=== PATIENT | female | born 1980 | race Caucasian/White ===

== ENCOUNTER 2020-01-08 08:46 | Outpatient (CLI) | payer MEDICAID, SELFPAY ==
--- NOTE | 2020-01-08 09:37 | MR_ITS ---
WS: [id number] MRI RIGHT FOOT without CONTRAST. COMPARISON: RIGHT foot radiograph 05/12/2019 and calcaneus 08/01/2019 Multiplanar, multisequence imaging is performed without contrast. Distal Achilles tendon is normal. There is a small amount of fluid at the attachment of the plantar a poneurosis to the calcaneus. There is a small amount of perifascial edema and a small amount of marro w in the adjacent bone. Associated small calcaneal spur. Mild thickening of the plantar aponeurosis medially. There is a very small amount of increased T2 sig nal extending into the medial plantar aponeurosis by 4 mm. There is no joint effusion is any significance. Metatarsals and toes are normally aligned. MR/MR foot RT wo con* [id number] IMPRESSION: 1. Moderate plantar fasciitis. Focal tear in the medial aponeurosis. 2. Small calcaneal spur.
== END 2020-01-08 08:47 | disposition home or self-care (01) ==
LOC: RADSHAW 08:48
PROVIDERS: Family Provider Internal Medicine; PCP Internal Medicine; Visit Provider Podiatrist Foot & Ankle Surgery
DX: M72.2 Plantar fascial fibromatosis (principal); M77.31 Calcaneal spur, right foot
CPT/HCPCS: 73718

== ENCOUNTER 2020-04-21 14:38 | Outpatient (CLI) | payer MEDICAID, SELFPAY ==
--- NOTE | 2020-04-21 15:31 | PC.NURSE ---
PPE donned to include gown, goggles, gloves and N95. Patient identified utilizing name and date of . Covid nasal swab performed and specimen labeled. Patient tolerated well and specimen taken to lab.
[2020-04-22 20:17] LABS: Coronavirus Lab Test PTC Negative
== END 2020-04-21 14:39 | disposition home or self-care (01) ==
PROVIDERS: PCP Internal Medicine; Visit Provider Orthopaedic Surgery
DX: Z01.818 Encounter for other preprocedural examination (principal)
CPT/HCPCS: 87635

== ENCOUNTER 2020-04-25 07:43 | Day surgery (SDC) | payer MEDICAID, SELFPAY ==
[2020-04-24 09:35] VITALS: BMI 28.3
[2020-04-25] VITALS (9 sets, daily range): BP systolic 135–171; BP diastolic 80–98; PULSE 68–107; RESP 16–19; TEMP 36.3–36.8; O2SAT 94–97
[2020-04-25] MEDS: sodium chloride 0.9% 1,000 ML 30 ML IV (08:16)
--- NOTE | 2020-04-25 08:35 | ANES.PREANE2 ---
Pre-Anesthetic Assessment Pre-Anesthetic Assessment: Height/Weight: Height 1.52 m Weight 65.771 kg Preop Diagnosis: Recalcitrant plantar fasciitis with gastrocnemius equinus right lower extremity Proposed Procedure: Operation Date: 04/25/20 10:05 Proposed Procedures p Gastrocnemius Recession 76916 [id number] M21.6X1(Not Applicable) - Papo Villasenor DPM s Plantar fascial release right(Right) - Papo Villasenor DPM Was Beta Eber taken within 24 hours: N/A Last intake: Intake Last Liquid Date 04/24/20 Last Liquid Time 23:00 Last Solid Date 04/24/20 Last Solid Time 18:00 Social: Social History: Alcohol and Tobacco Exam: Additional Exam Findings (including area of procedure): Social EtOH use only Airway: Submandibular: WNL Cervical ROM: WNL MP: 2 History/ROS: No significant complaints Pulmonary: Pulmonary: None reported Comments: Smoker CV/HEM: CV/HEM: None reported : : None reported Hepatic: Hepatic: None reported GI: GI: None reported Metabolic: Metabolic: None reported Musc/skel: Musc/skel: None reported Neuropsych: Neuropsych: Depression and Seizure Comments: No seizure > 2 years Anesthetic Plan: ASA status: 2 Anesthesia: General and Regional (specify below) Other: Risks, benefits and options for post op pain control disc and pt consents to Right US Guided Popliteal Nerve Block Risk of > 500 ml blood loss (7ml/kg in children): No Meds/Allergies Current Medications: Current Medications Generic Name Dose Route Start Last Admin Trade Name Freq PRN Reason Stop Dose Admin Sodium Chloride 1,000 mls @ 30 ml s/hr 04/25/20 08:15 04/25/20 08:16 Sodium Chloride 0.9% IV 04/26/20 08:14 30 mls/hr .Q24H LEANNA Administration PFSH Anesthesia PFSH: Surgical History (Updated 04/24/20 @ 09:41 by Keyla Barone) Hx of section Hx of cholecystectomy Family History Other Heart disease Hypertension Social History Smoking and tobacco status: current every day smoker cigarettes Packs smoked per day: 0.5 Alcohol intake: never Current occupational status: employed Current occupation: [employer] Female Reproductive History: Date of last menstrual period: 04/05/20 Data Anesthesia Cardiac Studies: No Data to Display
[2020-04-25] MEDS: fentaNYL 50 mcg/mL INJ 2mL 100 MCG IVP (10:15)
[2020-04-25] MEDS: midazolam 1 mg/mL INJ 5 ML 5 MG IVP (10:16)
--- NOTE | 2020-04-25 10:23 | ANES.PROC ---
Anesthesia Procedures Procedure/Date: 04/25/20 Nerve Block ^: Nerve Block 1: Main Anesthesia: general anesthesia Time Out Performed: Yes Consent: requested by attending/covering physician, risks and benefits reviewed and patient agrees to proceed Nerve block location: popliteal Anesthesia monitors applied: pulse oximetry, EKG, BP cuff and oxygen Nerve block position: supine Anesthetic Used: ropivicaine 0.5% Ultrasound used to: recognize landmarks Nerve Stimulator Used?: No Interscalene/Femoral BLK: 4 stimuplex 21 g needle used for position and inplane approach Injection: neg aspiration of heme Patient Tolerated Procedure: no complications Complications: none Additional Comments: 30 ml of 0.5% Ropivicaine
--- NOTE | 2020-04-25 10:56 | P.HPUD_ITS ---
Surgery/Procedure H&P Update DATE OF PROCEDURE: April 25, 2020 DATE H&P PERFORMED: 04/09/20 H&P UPDATE INFORMATION: I have reviewed H&P completed within last 30 days, I have examined patient prior to procedure, No changes to prior documentation and H&P is in [facility] [place] indicated PREOP DIAGNOSIS: Recalcitrant plantar fasciitis with gastrocnemius equinus right lower extremity PLANNED PROCEDURE: Operation Date: 04/25/20 10:05 Proposed Procedures p Gastrocnemius Recession 11486 [id number] M21.6X1(Not Applicable) - Papo Villasenor DPM s Plantar fascial release right(Right) - Papo Villasenor DPM
--- NOTE | 2020-04-25 12:21 | SUR.PHASEI ---
1217 PATIENT TO PACU FROM OR. RR EVEN AND UNLABORED. SPO2 95% ON RA. DRESSING TO RIGHT ANKLE, CDI.
--- NOTE | 2020-04-25 12:40 | P.OP_ITS ---
Operative Report Date of procedure: April 25, 2020 Pre-op Diagnosis: Recalcitrant plantar fasciitis with gastrocnemius equinus right lower extremity Post-op diagnosis: same Post-op Findings: None Procedure Done: Right gastrocnemius recession CPT code 09677. Right plantar fascial release CPT code 30492 Implants: 2-0 Vicryl, 4-0 Vicryl, 4-0 nylon, 3-0 Prolene Specimens removed/disposition: None Pathology: none sent Surgeon: Goodman Jones [employer] Abuse Counselor: Christine Anesthesia: General Estimated blood loss: 2 mL Tourniquet time: See intraoperative documentation IV fluids: None Urine output: None Condition: stable Disposition: PACU Brief History: Patient is a pleasant 40-year-old female with recalcitrant heel pain to the right plantar fascia she does have gastrocnemius equinus. She has failed conservative treatment options consisting of offloading with cam boot, mcneil pportive shoes, stretching exercises, orthotics, cortisone injection ice and heat therapy and physical therapy. She continues to have pain with everyday activities and weightbearing wishing to discuss surgical options. Her symptoms have been greater than 1 year in duration and have not subsided with the above- mentioned conservative treatments she would list to discuss surgical procedures. Recommended open plantar fascial release at the right plantar fascia and gastrocnemius recession with risks including pain, bleeding, numbness, infection, swelling, surgical site dehiscence, damage to adjacent soft tissue, collapse of the medial longitudinal arch, decreased in strength and power at the posterior leg muscle group and need for further surgical intervention, there is a risk for failure to alleviate pain. Patient is agreeable and wishes to proceed. Procedure: Under mild sedation Ms. Lucas was brought to the operating room and placed on the operating table in supine position. A timeout was performed. Anesthesia was then administered by the anesthesia service. Local anesthesia was injected by myself consisting of 10 cc in the right posterior leg at the gastrocnemius site of operation as well as at the instep of the right plantar fascia proximally. A well-padded pneumatic tourniquet was applied to the right thigh. The right lower extremity was then scrubbed, prepped and draped utilizing normal aseptic technique. The right lower extremity was then examined a weighted with an Esmarch bandage and the tourniquet was inflated to 300 mmHg. Attention was directed to the right medial leg where the flare of the gastrocnemius medial head was appreciated. Proximal to the myotendinous structure of the gastrocnemius Solus complex a linear longitudinal incision was made at the medial posterior aspect of the right leg with a #15 blade this was approximately 4 cm in length through skin. Dissection was carried down bluntly through subcutaneous tissue and fat layer utilizing blunt that technique. Care was taken to retract and preserve neurovascular tendinous structures. Bleeders were ligated and cauterized as necessary. Crural fascia was appreciated this was incised linearly exposing the gastrocnemius muscle. Further blunt dissection was carried to capture the correct plane and separate the gastrocnemius from Solus muscle utilizing a speculum this was retracted and a 15 blade utilized to transect the aponeurosis of the gastrocnemius muscle from lateral to medial with an obvious improvement in ankle joint dorsiflexion post release. Incision site was flushed with copious amounts of sterile saline solution. Crural fascia reapproximated utilizing 2-0 Vicryl. Subcutaneous tissue was closed utilizing 4-0 Vicryl and skin closed utilizing 4-0 nylon. 10 cc of Exparel was infiltrated subcutaneously around the incision site at the medial and lateral margin. Attention was directed to the right plantar instep where the skin line was followed for a 3 cm transverse incision with a #15 blade through skin down to subcutaneous tissue after which blunt dissection was carried down to the plantar fascia. Care was taken to retract and preserve neurovascular and tendon structures. Bleeders were ligated and cauterized as necessary. The plantar fascia was directly visualized and incised from medial to lateral care was taken to not transect the entire width of the plantar fascia however the medial two thirds was transected and while loading the first ray and elevating the great toe the plantar fascia was noted to have complete release and able to visualize underlying muscle belly of intrinsic musculature. Incision site was flushed with copious amounts of sterile saline solution. Skin was closed utilizing 3-0 Prolene. Incision site was infiltrated with 10 cc of Exparel per retail business manager recommendations. Incision sites were both then dressed with Adaptic, sterile 4 x 4's, Kerlix, Lavon wrap followed by application of cam boot. Tourniquet was deflated and a prompt hyperemic response was noted to the distal digits of the right lower extremity. Patient tolerated the procedure well and anesthesia well and was transferred to the PACU with vital signs stable and vascular status intact. She may be weightbearing as tolerated protected with a cam boot she also has crutches to assist with ambulation. She will follow-up next week and was given postoperative instructions as well as my phone number to contact with any postoperative questions or concerns.
--- NOTE | 2020-04-25 12:44 | SUR.PHASEI ---
1240 PATIENT TO OPS AT THIS TIME. DENIES PAIN. TOLERATING ICE CHIPS
[2020-04-25] MEDS: oxyCODONE-APAP 10-325 mg Tablet 1 TAB PO (13:09)
== END 2020-04-25 13:28 | disposition home or self-care (01) ==
PROVIDERS: PCP Internal Medicine; Visit Provider Podiatrist Foot & Ankle Surgery
PROC: (CPT 27687; principal; 2020-04-25 10:05)
PROC: (CPT 28899; 2020-04-25 10:05)
DX: M72.2 Plantar fascial fibromatosis (principal); F17.210 Nicotine dependence, cigarettes, uncomplicated
CPT/HCPCS: 27687; 28060; 12345; 96374; 96375; C9290; J0690; J1100; J2250; J2704; J2795; J3010; J3490; J7030

== ENCOUNTER → 2020-05-27 08:02 | Outpatient (BNVA) | payer MEDICAID, SELFPAY | PROVIDERS: PCP Internal Medicine; Visit Provider Podiatrist Foot & Ankle Surgery | DX: S99.921A Unspecified injury of right foot, initial encounter (principal) | CPT/HCPCS: 73630 ==

== ENCOUNTER → 2021-02-18 13:53 | Outpatient (BNVA) | payer BC, SELFPAY | PROVIDERS: PCP Internal Medicine; Visit Provider Podiatrist Foot & Ankle Surgery | DX: M79.671 Pain in right foot (principal) | CPT/HCPCS: 73630 ==

== ENCOUNTER → 2022-04-14 14:30 | Outpatient (BNVA) | payer BC, MEDICAID, SELFPAY | PROVIDERS: PCP Internal Medicine; Referring Provider Internal Medicine; Visit Provider Obstetrics & Gynecology | DX: Z12.4 Encounter for screening for malignant neoplasm of cervix (principal); N93.9 Abnormal uterine and vaginal bleeding, unspecified; N64.4 Mastodynia | CPT/HCPCS: 84146; 84443; 87624 ==

== ENCOUNTER 2022-04-28 06:48 | Outpatient (CLI) | payer BC, MEDICAID, SELFPAY ==
--- NOTE | 2022-04-28 07:15 | US_ITS ---
WS: [id number] TRANSABDOMINAL PELVIC AND TRANSVAGINAL PELVIC ULTRASOUND HISTORY: N93.9 - Abnormal uterine and vaginal bleeding, unspecified COMPARISON: None available. Uterus: 7.6 cm x 5.2 cm x 4.2 cm. Normal size anteverted uterus. No fibroid or mass. Scarring along t he scar is evident. Endometrium: 0.7 cm. Normal homogeneous endometrium. Normal vascularity. Right ovary: 2.3 cm x 2.1 cm x 1.6 cm. Normal size and echogenicity. Normal vascularity. Left ovary: Not visualized. No adnexal mass. No free fluid. US/US pelvic with transvaginal IMPRESSION: 1. Normal endometrium. 2. LEFT ovary not visualized. 3. Negative RIGHT ovary.
== END 2022-04-28 06:49 | disposition home or self-care (01) ==
PROVIDERS: PCP Internal Medicine; Visit Provider Obstetrics & Gynecology
DX: N93.9 Abnormal uterine and vaginal bleeding, unspecified (principal)
CPT/HCPCS: 76830; 76856

== ENCOUNTER 2022-05-04 09:33 | Outpatient (CLI) | payer BC, MEDICAID, SELFPAY ==
--- NOTE | 2022-05-04 09:40 | MM_ITS ---
WS: [id number] DIAGNOSTIC BILATERAL DIGITAL BREAST TOMOSYNTHESIS MAMMOGRAPHY WITH CAD RIGHT breast ultrasound, limited. HISTORY: Pain behind the RIGHT nipple. COMPARISON: None available. TECHNIQUE: Bilateral craniocaudad, mediolateral oblique, and mediolateral views are submitted with to mosynthesis and SM. Spot compression RIGHT MLO and cc. Computer aided detection utilized. Breast composition: There are scattered areas of fibroglandular density. Marker is placed along the a nterior RIGHT breast. No underlying mass is identified. There is a benign calcification. No nipple re traction. No calcification. RIGHT breast ultrasound, limited. Ultrasound directed to the area of pain in the anterior RIGHT breast as directed by the patient. No m ass or abnormality is identified. No increased vascularity. Similar area on the LEFT breast is imaged for comparison and no abnormality is identified. MM/[place] [id number] IMPRESSION: BI-RADS: 1-Negative FOLLOW UP: 1 Year Follow-up No abnormality noted in the anterior RIGHT breast in the area of pain. Return t o annual screening mammography.
--- NOTE | 2022-05-04 10:18 | US_ITS ---
WS: [id number] DIAGNOSTIC BILATERAL DIGITAL BREAST TOMOSYNTHESIS MAMMOGRAPHY WITH CAD RIGHT breast ultrasound, limited. HISTORY: Pain behind the RIGHT nipple. COMPARISON: None available. TECHNIQUE: Bilateral craniocaudad, mediolateral oblique, and mediolateral views are submitted with to mosynthesis and SM. Spot compression RIGHT MLO and cc. Computer aided detection utilized. Breast composition: There are scattered areas of fibroglandular density. Marker is placed along the a nterior RIGHT breast. No underlying mass is identified. There is a benign calcification. No nipple re traction. No calcification. RIGHT breast ultrasound, limited. Ultrasound directed to the area of pain in the anterior RIGHT breast as directed by the patient. No m ass or abnormality is identified. No increased vascularity. Similar area on the LEFT breast is imaged for comparison and no abnormality is identified. US/US breast RT limited* [id number] IMPRESSION: BI-RADS: 1-Negative FOLLOW UP: 1 Year Follow-up No abnormality noted in the anterior RIGHT breast in the area of pain. Return t o annual screening mammography.
== END 2022-05-04 09:34 | disposition home or self-care (01) ==
PROVIDERS: PCP Internal Medicine; Visit Provider Obstetrics & Gynecology
DX: N64.4 Mastodynia (principal)
CPT/HCPCS: 76642; 77062

== ENCOUNTER → 2022-07-21 09:53 | Outpatient (BNVA) | payer BC, MEDICAID, SELFPAY | PROVIDERS: PCP Internal Medicine; Visit Provider Obstetrics & Gynecology | DX: N92.6 Irregular menstruation, unspecified (principal) | CPT/HCPCS: 88305 ==

== ENCOUNTER 2022-09-28 09:08 | Inpatient (IN) | payer BC, MEDICAID, SELFPAY ==
[2022-09-23 10:29] VITALS: BMI 35.2
--- NOTE | 2022-09-23 10:50 | ANES.PREANE2 ---
Pre-Anesthetic Assessment Height/Weight: Height 1.52 m Weight 81.647 kg Preop Diagnosis: Recalcitrant plantar fasciitis with gastrocnemius equinus right lower extremity Operation Date: 09/28/22 07:00 Proposed Procedures p Total abdominal hysterectomy, bilateral salpingectomy 60449,N93.9(Not Applicable) - Amarilys Reed MD s Salpingectomy(Not Applicable) - Amarilys Reed MD Familial anesthetic complications: NOne Social Tobacco and No alcohol Exam alert, oriented x 3, clear to auscultation bilaterally and regular rate & rhythm Airway Mallampati: Class II Dentition: false and partials Pulmonary None reported CV/HEM None reported None reported Hepatic None reported GI None reported Metabolic None reported Musc/skel None reported Neuropsych Seizure (epilepsy) Anesthetic Plan ASA status: 2 Anesthesia: General Risk of > 500 ml blood loss (7ml/kg in children): No Medications/Allergies Home Medications Medication Instructions Recorded Confirmed Last Taken Type ibuprofen 200 mg tablet (Advil) 200 mg PO Q6H PRN Pain 11/27/19 09/23/22 09/16/22 History mirtazapine 7.5 mg tablet 7.5 mg PO BEDTIME 02/18/21 09/23/22 09/22/22 History Allergies Allergy/AdvReac Type Severity Reaction Status Date / Time sumatriptan [From Imitrex] Allergy anaphylaxis Verified 09/23/22 10:28 ketorolac [From Toradol] AdvReac ADR-Itching Verified 09/23/22 10:28 [facility] Anesthesia Medical History Epilepsy Diagnosed at the age of 3. Has been on medication in the past but not currently. Last seizure was in 2020. She follows up with neurology Dr. Olu Martínez Reports having migraines without auras since about 2015 and this is managed by her primary care provider. No pertinent past medical history Denies diabetes, asthma, hypertension, DVT/PE PCP: Dr. Ram Surgical History S/P section x 2 2002, 2006 S/P cholecystectomy Laparoscopic procedure in 2016 Status post right foot surgery Arch removal---2019--right patellar fascia surgery Status post tubal ligation 2006 at time of second Family History Father Heart disease Hypertension Stroke Mother Hypertension Thyroid condition Denies family history of Colon cancer Ovarian cancer Diabetes Hyperlipidemia Breast cancer Uterine cancer Social History Smoking and tobacco status: current every day smoker (.5 PACK A DAY) Female Reproductive History Date of last menstrual period: 09/13/22 Data Anesthesia Cardiac Studies: No Data to Display
[2022-09-23 11:10] LABS: Basophils # 0.1 10^3/uL (0.0-0.1); Basophils % 0.7 %; Eosinophils # 0.1 10^3/uL (0.0-0.8); Eosinophils % 0.7 %; Hematocrit 45.5 % (37.0-47.0); Hemoglobin 14.9 g/dL (11.5-15.3); Lymphocytes # 2.1 10^3/uL (0.8-4.8); Lymphocytes % 31.5 %; Mean Corpuscular HGB Conc 32.7 g/dL (30.0-36.0); Mean Corpuscular Hemoglobin 30.9 pg (28.0-34.0); Mean Corpuscular Volume 94.4 fl (81-99); Mean Platelet Volume 9.9 fL (7.4-10.4); Monocytes # 0.4 10^3/uL (0.2-0.9); Monocytes % 5.3 %; Neutrophils # 4.15 10^3/uL (1.8-7.7); Neutrophils % 61.5 %; Nucleated Red Blood Cells % 0 %; Platelet Count 365 10^3/cmm (130-400); Red Blood Count 4.82 10^6/uL (4.1-5.3); Red Cell Distribution Width 13.2 % (12.1-15.1); White Blood Count 6.8 10^3/uL (4.0-10.0)
[2022-09-23 11:34] LABS: Anion Gap 16.9 (5-19); Blood Urea Nitrogen 8 mg/dL (6-20); Calcium 8.8 mg/dL (8.5-10.5); Carbon Dioxide 21 mmol/L (22-29); Chloride 107 mmol/L (98-107); Glomerular Filtration Rate 91.8 mL/min (90-130); Glucose 91 mg/dL (65-115); Osmolality Calculated 288 mOsm/kg (285-295); Potassium 4.9 mmol/L (3.5-5.1); Sodium 140 mmol/L (136-145)
[2022-09-28] VITALS (35 sets, daily range): BP systolic 142–170; BP diastolic 72–102; PULSE 70–99; RESP 13–18; TEMP 36.5–36.9; O2SAT 94–98; BMI 35.2
[2022-09-28] MEDS: acetaminophen 1,000 MG/100 ML PIGGYBACK 400 MG IV (06:37)
[2022-09-28] MEDS: scopolamine 1.5 Patch 1 PATCH TRANSDERMA (06:38)
[2022-09-28] MEDS: phenazopyridine 100 mg Tablet 200 MG PO ×3 (06:38→21:53)
[2022-09-28] MEDS: CELEcoxib 200 mg Capsule 400 MG PO (06:39)
[2022-09-28] MEDS: sodium chloride 0.9% 1,000 ML 30 ML IV (06:39)
--- NOTE | 2022-09-28 07:05 | W.PM.OPSUD ---
Surgery/Procedure H&P Update DATE OF PROCEDURE: September 28, 2022 DATE H&P PERFORMED: 09/23/22 H&P UPDATE INFORMATION: I have reviewed H&P completed within last 30 days, I have examined patient prior to procedure and No changes to prior documentation PREOP DIAGNOSIS: AUB PLANNED PROCEDURE: Operation Date: 09/28/22 07:00 Proposed Procedures p Total abdominal hysterectomy, 97622,N93.9(Not Applicable) - Amarilys Reed MD Related Problem List Diagnoses (1) Abnormal uterine bleeding (AUB):
[2022-09-28] MEDS: ceFAZolin 2,000 MG in sodium chloride 0.9% (plus) 50 ML 100 MG IV ×2 (07:10→17:13)
--- NOTE | 2022-09-28 07:32 | P.ANESUD_ITS ---
Pre-Anesthetic Update Pre-Anesthetic Assessment: Date of Surgery/Procedure: 09/28/22 Preop Florencia gnosis: AUB Proposed Procedure: Operation Date: 09/28/22 07:00 Proposed Procedures p Total abdominal hysterectomy, 26204,N93.9(Not Applicable) - Amarilys Reed MD Any changes to Pre-Anesthetic Assessment?: No Last Intake: Intake Last Liquid Date 09/27/22 Last Liquid Time 11:30 Last Solid Date 09/27/22 Last Solid Time 21:30 Vitals: Temperature 98.4 F 09/28/22 05:55 Temperature Source Temporal Artery S can 09/28/22 05:55 Pulse Rate 82 09/28/22 05:55 Pulse Rhythm 09/28/22 06:05 Pulse Strength 3+ Normal 09/28/22 06:05 Respiratory Rate 18 09/28/22 05:55 Blood Pressure 142/98 09/28/22 05:55 Blood Pressure Marilee n 112 09/28/22 05:55 Pulse Oximetry 95 09/28/22 05:55 Oxygen Delivery Me thod 09/28/22 06:05 Exam: Pre-Anes Outpt Exam: alert, oriented x 3, clear to auscultation bilaterally and regular rate & rhythm Cardiac Studies: No Data to Display
--- NOTE | 2022-09-28 09:19 | P.OP_ITS ---
Operative Report Date of procedure: September 28, 2022 Pre-op diagnosis: Preop Diagnosis AUB Post-op diagnosis: same Post-op findings: 10 week sized uterus, normal appearing ovaries. Portions of remaining fallopian tubes present Procedure done: PATRIA, completed salpingectomy (Patient reports prior salpingectomy, however small portions of fallopian tube were still present Specimens removed/disposition: uterus, small portions of bilateral fallopian tube to pathology Surgeon: Amarilys Reed Anesthesia: General Estimated blood loss (mL): 1,000 IV fluids (mL): 2,000 Urine output (mL): 30 Complications: all tissue was very friable and bled Condition: stable Disposition: PACU Procedure: The patient was taken to the operating room where general anesthesia was administered and found to be adequate. She was prepped and draped in the normal sterile fashion in the dorsal supine position. A sherman catheter was placed. A Pfannenstiel skin incision was made and carried down to the underlying layer of fascia. The fascia was nicked in the midline and extended laterally with the Rick scissors. The fascia was then tented up and the rectus muscles dissected off sharply. The rectus muscles were in the midline and the abdomen entered bluntly with the digit. This peritoneal incision was extended superiorly and inferiorly with good visualization of the bladder. The O'Fan- O'Lorenzo retractor was placed and the bowel packed away. The round ligament was suture-ligated and opened. This was performed bilaterally. A window was made medial to the infundibulopelvic ligament and inferior to the ovary. There were small segments of the fallopian tube present bilaterally. The infundibulo pelvic ligament was clamped cut and suture-ligated Superior to the ovary, bilaterally. The small segment of remaining fallopian tubes were clamped inferiorly, cut and tied. The bladder flap was created sharply with the metzenbaum scissors and the bladder reflected caudally. The uterine arteries and cardinal ligaments were then clamped cut and suture-ligated down to the angle of the vagina. The vaginal cuff was clamped and cut and the specimen was removed. The vaginal cuff was closed with 0 Vicryl incorporating the uterosacral ligaments into the lateral aspects of the vaginal cuff. There was excellent hemostasis. The pelvis was irrigated. The O'Fan-O'Lorenzo retractor as well as the packing was removed. The peritoneum was closed with 3- 0 Monocryl in a running fashion. The fascia was closed with 0 Vicryl in a running fashion with 2 separate sutures overlapping in the midline. The skin was closed with absorbable mervin. The patient tolerated the procedure well. Sponge lap and needle counts were correct x2. She was taken to the recovery room in stable condition.
[2022-09-28] MEDS: fentaNYL 50 mcg/mL INJ 2mL IVP ×2 (09:29→09:36)
[2022-09-28] MEDS: ondansetron 2 mg/ML SDV 2 mL 4 MG IVP ×3 (09:38→23:32)
[2022-09-28] MEDS: sodium chloride 0.9% 1,000 ML 999 ML IV (09:45)
--- NOTE | 2022-09-28 09:53 | SUR.PHASEI ---
0913 PT TO PACU 5 PT AWAKES TO VOICE ABDOMEN SOFT WITH DRESSING D/I FOAM TAPE OVER ABD AND SILVALON DRESSING, YOMAIRA PAD WITH SMALL AMT RED DRAINAGE, NO PACKING, PIEDRA TO DD WITH STATLOCK TO LT INNER THIGH WITH SMALL AMT 5ML DARK ORANGR URINE TO TUBING AND BAG EMPTY, IV AT W/O RATE WITH PRESSURE BAG IN PLACE PER ENGINE REPAIR SUPERVISOR IV TO RT HAND # 20 WITH 300ML NS UP AT FAST RATE PER PRESSURE BAG , PER ENGINE REPAIR SUPERVISOR FOR LOW URINE OUTPUT DURING SURGURY, VSS BP 155/91 BILAT SCDS ON AND WORKING
--- NOTE | 2022-09-28 09:59 | SUR.PHASEI ---
0961 DR TRIPLETT AT BEDSIDE AND ORDERS RECIEVED TO GIVE 1LITER NS IV NOW AT FAST RATE TO IMPROVE URINE OUT PUT, APPROX 10ML OF URINE TO BAG, DARK ORANGE, SEE ORDER PLACED AND BAG UP, PT REPOSITIONED TO COMFORT ON RT SIDE NO BLEEDING NOTED AND ABDOMEN SOFT , DRESSING D/I
[2022-09-28] MEDS: FUROsemide 10 mg/mL SDV 2mL 20 MG IVP (10:09)
--- NOTE | 2022-09-28 10:11 | SUR.PHASEI ---
1000 PT AWAKE ALERT C/O OF URGENCY ONLY PT REPOSTIONED ON RT SIDE WITH PILLOWS TO COMFORT, DR TRIPLETT AT BEDSIDE, APPROX 1-=30 ML URINE TO PIEDRA BAG, ORDERS RECIEVED FOR 20MG IVP LASIX FOR IMPROVED URINE OUTPUT. VSS FAMILY UPDATED PT AWAKE ALERT AND COMFORTABLE AND STABLE.
--- NOTE | 2022-09-28 10:25 | SUR.PHASEI ---
URINE NOW CLEAR YELLOW 125 EMPTIED,DR NUR NOTIFIED, OK TO GO TO OB .
--- NOTE | 2022-09-28 10:51 | SUR.PHASEI ---
PT TO OB PER CART PT AWAKE ALERT MOVES SELF TO BED ABDOMENS OFT DRESSING D/I STILL PRODUCING CLEAR YELLOW URINE APPOX 100 ML IN BAG. HANDOFF AT BEDSIDE TO TALON PRADO. FAMILY IN WAITING ROOM WAITING TO SEE PT.
[2022-09-28] MEDS: oxyCODONE-APAP 5-325 mg Tablet PO (11:02)
[2022-09-28] MEDS: dextrose 5%-lactated ringers 1,000 ML 125 ML IV ×2 (11:03→19:43)
--- NOTE | 2022-09-28 12:05 | PC.NURSE ---
2699 PT FEELS LIKE SHE NEEDS TO HAVE A BOWEL MOVEMENT, PT UP TO BATHROOM, UNABLE TO HAVE A STOOL, BACK TO BED WITHOUT DIFFICULTY. PT STATES THAT SHE FELT ALOT OF VAGINAL PRESSURE.THIS COAT JOINER LOCKSTITCH LOOKED FOR VAGINAL PACKING AND SAW NO GAUZE COMING FROM VAGINA. DR. TRIPLETT'S REPORT SAYS NOTHING ABOUT VAGINAL PACKING PRIOR TO GETTING UP TO BATHROOM.
[2022-09-28] MEDS: hydroCHLOROthiazide 25 mg Tablet 50 MG PO (13:11)
--- NOTE | 2022-09-28 14:44 | ANE.PACU2 ---
Inpatient post-anesthesia follow up: Airway intact: Yes Vital signs: Temperature 98.4 F Pulse Rate 75 Respiratory Rate 18 Blood Pressure 148/79 Pulse Oximetry 97 Oxygen Delivery Me thod Room Air Oxygen Flow Rate Fraction of Inspir ed Oxygen Hydration adequate: Yes Nausea and vomiting: No Pain level: 3 Mental status: Baseline
[2022-09-28] MEDS: HYDROmorphone 1 mg/mL INJ 1 mL 1.5 MG IVP ×3 (15:20→23:27)
[2022-09-28] MEDS: nicotine 14 mg Patch 1 PATCH TRANSDERMA (17:13)
[2022-09-28] MEDS: docusate sodium 100 mg Capsule PO (17:13)
[2022-09-28] MEDS: mirtazapine 15 mg Tablet 7.5 MG PO (21:43)
[2022-09-29] MEDS: ceFAZolin 2,000 MG in sodium chloride 0.9% (plus) 50 ML 100 MG IV (00:51)
[2022-09-29 04:15] VITALS: BP 155/81; PULSE 87; RESP 18; TEMP 36.7; O2SAT 97
[2022-09-29 04:22] VITALS: RESP 18; O2SAT 97
[2022-09-29] MEDS: dextrose 5%-lactated ringers 1,000 ML 125 ML IV (04:22)
[2022-09-29] MEDS: HYDROmorphone 1 mg/mL INJ 1 mL 1.5 MG IVP (04:22)
[2022-09-29 05:38] LABS: Hematocrit 31.6 % (37.0-47.0); Hemoglobin 10.6 g/dL (11.5-15.3); Mean Corpuscular HGB Conc 33.5 g/dL (30.0-36.0); Mean Corpuscular Hemoglobin 31.4 pg (28.0-34.0); Mean Corpuscular Volume 93.5 fl (81-99); Mean Platelet Volume 9.7 fL (7.4-10.4); Platelet Count 313 10^3/cmm (130-400); Red Blood Count 3.38 10^6/uL (4.1-5.3); Red Cell Distribution Width 13.3 % (12.1-15.1); White Blood Count 15.9 10^3/uL (4.0-10.0)
[2022-09-29 07:20] VITALS: BP 163/97; PULSE 75; RESP 16; TEMP 37
[2022-09-29] MEDS: docusate sodium 100 mg Capsule PO ×2 (08:52→17:39)
[2022-09-29] MEDS: ibuprofen 800 mg tablet PO ×2 (08:52→17:39)
[2022-09-29] MEDS: simethicone 80 mg Chew PO (08:53)
[2022-09-29] MEDS: nicotine 14 mg Patch 1 PATCH TRANSDERMA (08:53)
[2022-09-29] MEDS: phenazopyridine 100 mg Tablet 200 MG PO ×3 (08:53→21:17)
[2022-09-29] MEDS: bisacodyl 5 mg Tablet 10 MG PO (08:53)
[2022-09-29 10:12] VITALS: RESP 18
[2022-09-29] MEDS: oxyCODONE-APAP 5-325 mg Tablet PO ×2 (10:12→20:22)
--- NOTE | 2022-09-29 10:23 | PC.NURSE ---
PATIENT STATED THAT SHE VOIDED, TOLD HER THAT WE NEED TO MEASURE HER URINE. SO URINE HAT BACK IN TOILET.
--- NOTE | 2022-09-29 15:19 | P.PN_ITS ---
Vitals/I&O/Wt Last Vital Signs Temp 98.6 F 09/29/22 07:20 Pulse 75 09/29/22 07:20 Resp 18 09/29/22 10:12 BP 163/97 09/29/22 07:20 Pulse Ox 97 09/29/22 04:22 O2 Del Method 09/29/22 04:15 09/29/22 09/29/22 09/29/22 06:59 14:59 22:59 Intake Total 1050 / 5650 600 / 600 Output Total 650 / 3760 2200 / 2200 Balance 400 / 1890 -1600 / -1600 Weight last 48 hrs Weight 180 lb Physical Exam Narrative: The patient is stable this morning. Her blood pressures continue to be elevated. She has had good urine output. she has had her catheter removed. Pain is controlled with IV pain medication. She initially had remote bowel sounds, but she has been up and ambulating and passing gas. She is tolerating a regular diet Const: COMMON NORMALS: no acute distress, patient oriented x3, no limitations, healthy appearing, alert and well nourished GENERAL APPEARANCE: cooperative, comfortable, well kempt and well developed ORIENTATION/CONSCIOUSNESS: Yes awake, Yes oriented to person, Yes oriented to place and Yes oriented to time Resp: COMMON NORMALS: normal respiratory effort EFFORT & INSPECTION: Yes able to speak in complete sentences GI: COMMON NORMALS: Soft to palpation and non-tender PALPATION: Yes Soft to palpation Extremity: COMMON NORMALS: no calf tenderness Neuro: COMMON NORMALS: patient oriented x3 SENSORIUM/ORIENTATION: Yes alert, Yes oriented to person, Yes oriented to place and Yes oriented to time Psych: APPEARANCE: Yes well kempt Urinary Catheter Management: Todd: Cath Placed During This Visit: yes, but has since been removed by the nurse Reason for Continuing Indwelling Catheter: Decision to DC Catheter Urinary Catheter Date of Insertion: 09/28/22 Urinary Catheter Time of Insertion: 07:20 Date Urinary Catheter Removed: 09/29/22 Time Urinary Catheter Discontinued: 05:15 Data 09/29/22 05:32 09/23/22 10:50 Micro: Microbiology 09/28/22 06:10 Urine Culture - Preliminary Urine Catheterized A&P Assessment and plan (1) Postoperative state: doing well postoperatively encourage continued ambulation change to oral pain medication plan for discharge tomorrow Attestations Medical Necessity Statement*: The patient had abdominal surgery. She will be here two midnights Coding Level of Care Code Acute Pipe Machine Operator for g Fwd Diagnoses Postoperative state Z98.890
[2022-09-29] MEDS: acetaminophen 325 mg Tablet 650 MG PO (15:48)
[2022-09-29 20:22] VITALS: RESP 16
[2022-09-29] MEDS: mirtazapine 15 mg Tablet 7.5 MG PO (20:23)
[2022-09-29 21:43] VITALS: BP 146/79; PULSE 98; RESP 16; TEMP 36.8
[2022-09-30] MEDS: ibuprofen 800 mg tablet PO ×2 (03:49→09:51)
[2022-09-30 04:50] VITALS: BP 151/89; PULSE 76; RESP 16; TEMP 36.7
[2022-09-30 05:11] VITALS: RESP 16
[2022-09-30] MEDS: oxyCODONE-APAP 5-325 mg Tablet PO (05:11)
[2022-09-30 07:37] VITALS: BP 135/87; PULSE 95; RESP 16; TEMP 37; O2SAT 96
[2022-09-30] MEDS: phenazopyridine 100 mg Tablet 200 MG PO (09:51)
[2022-09-30] MEDS: docusate sodium 100 mg Capsule PO (09:51)
--- NOTE | 2022-09-30 10:09 | P.DS_ITS ---
Discharge Providers Date of Admission: 09/28/22 09:08 Date of Discharge: September 30, 2022 Attending Provider at Admission: Amarilys Reed MD Attending Provider at Discharge: Amarilys Reed MD Primary Care Provider: Saul Ram DO Diagnoses at Discharge Discharge Diagnosis (1) Postoperative state: Status: Acute Reason for Visit Reason for Visit: abnormal uterine and vaginal bleeding, unspecified Hospital Course Hospital Course The patient was admitted for surgery. She did well postoperatively and was ready for discharge on day #2 Physical Exam Narrative: The patient is doing well today. No concerns Const: COMMON NORMALS: no acute distress, patient oriented x3, no limitations, healthy appearing, alert and well nourished GENERAL APPEARANCE: cooperative, comfortable, well kempt and well developed ORIENTATION/CONSCIOUSNESS: Yes aw chastity, Yes oriented to person, Yes oriented to place and Yes oriented to time Resp: COMMON NORMALS: normal respiratory effort EFFORT & INSPECTION: Yes able to speak in complete sentences GI: COMMON NORMALS: Soft to palpation and non-tender PALPATION: Yes Soft to palpation Extremity: COMMON NORMALS: no calf tenderness Neuro: COMMON NORMALS: patient oriented x3 SENSORIUM/ORIENTATION: Yes alert, Yes oriented to person, Yes oriented to place and Yes oriented to time Psych: COMMON NORMALS: mental status grossly normal, Normal thought process present, cooperative, normal affect and speech normal APPEARANCE: Yes well kempt SPEECH: Yes normal speech THOUGHT PROCESS: Normal thought process present Skin: WOUNDS: Yes surgical site (clean/dry/covered with silver dressing) Urinary Catheter Management: Todd: Cath Placed During This Visit: yes, but has since been removed by the nurse Reason for Continuing Indwelling Catheter: Decision to DC Catheter Urinary Catheter Date of Insertion: 09/28/22 Urinary Catheter Time of Insertion: 07:20 Date Urinary Catheter Removed: 09/29/22 Time Urinary Catheter Discontinued: 05:15 Discharge Data Studies Completed and Pending Pending at discharge Category Date Time Status Urine Culture Routine Lab 09/28/22 06:10 Results Pathology: Surgical [PTH] Routine Pth 09/28/22 08:54 Received Laboratory Results WBC 15.9 10^3/uL (4.0-10.0) H 09/29/22 05:32 Corrected WBC Cancelled 09/29/22 05:15 RBC 3.38 10^6/uL (4.1-5.3) L 09/29/22 05:32 Hgb 10.6 g/dL (11.5-15.3) L 09/29/22 05:32 Hct 31.6 % (37.0-47.0) L 09/29/22 05:32 MCV 93.5 fl (81-99) 09/29/22 05:32 MCH 31.4 pg (28.0-34.0) 09/29/22 05:32 MCHC 33.5 g/dL (30.0-36.0) 09/29/22 05:32 RDW 13.3 % (12.1-15.1) 09/29/22 05:32 Plt Count 313 10^3/cmm (130-400) 09/29/22 05:32 MPV 9.7 fL (7.4-10.4) 09/29/22 05:32 Neut % (Auto) 61.5 % 09/23/22 10:50 Lymph % (Auto) 31.5 % 09/23/22 10:50 [place] % (Auto) 5.3 % 09/23/22 10:50 Eos % (Auto) 0.7 % 09/23/22 10:50 Baso % (Auto) 0.7 % 09/23/22 10:50 Neut # (Auto) 4.15 10^3/uL (1.8-7.7) 09/23/22 10:50 Lymph # (Auto) 2.1 10^3/uL (0.8-4.8) 09/23/22 10:50 [place] # (Auto) 0.4 10^3/uL (0.2-0.9) 09/23/22 10:50 Eos # (Auto) 0.1 10^3/uL (0.0-0.8) 09/23/22 10:50 Baso # (Auto) 0.1 10^3/uL (0.0-0.1) 09/23/22 10:50 Nucleated RBC % (auto) 0 % 09/23/22 10:50 Nucleated RBCs # 0.0 /100WBC 09/23/22 10:50 Sodium 140 mmol/L (136-145) 09/23/22 10:50 Potassium 4.9 mmol/L (3.5-5.1) 09/23/22 10:50 Chloride 107 mmol/L (98-107) 09/23/22 10:50 Carbon Dioxide 21 mmol/L (22-29) L 09/23/22 10:50 Anion Gap 16.9 (5-19) 09/23/22 10:50 BUN 8 mg/dL (6-20) 09/23/22 10:50 Creatinine 0.7 mg/dL (0.5-0.9) 09/23/22 10:50 GFR Calculation 91.8 mL/min (90-130) 09/23/22 10:50 Glucose 91 mg/dL (65-115) 09/23/22 10:50 Calculated Osmolality 288 mOsm/kg (285-295) 09/23/22 10:50 Calcium 8.8 mg/dL (8.5-10.5) 09/23/22 10:50 Blood Type A Positive 09/28/22 06:33 Rho(D) Type Positive 09/28/22 06:33 Antibody Screen Negative 09/28/22 06:33 Vitals Last Vital Signs Temp 98.6 F 09/30/22 07:37 Pulse 95 09/30/22 07:37 Resp 16 09/30/22 07:37 BP 135/87 09/30/22 07:37 Pulse Ox 96 09/30/22 07:37 O2 Del Method 09/30/22 07:37 Discharge Plan Discharge Patient Disposition: Home Condition: Stable Prescriptions: New ibuprofen 800 mg Tablet 800 mg PO Q8H Qty: 30 0RF oxycodone-acetaminophen 5-325 mg Tablet 1 tab PO Q4H PRN (Reason: Moderate To Severe Pain) Qty: 30 0RF docusate sodium 100 mg Capsule 100 mg PO BID Qty: 60 0RF Continued ibuprofen [Advil] 200 mg tablet 200 mg PO Q6H PRN (Reason: Pain) mirtazapine 7.5 mg tablet 7.5 mg PO BEDTIME Discharge Orders: Discharge Order (Routine); Ordered 09/30/22 Ordered By: Amarilys Reed Referrals: Amarilys Reed MD [Physician] - 10/06/22 1:30 pm (1 week post-op 10/06/22 1:30 6 week post-op 11/08/22 12:45) Patient Instructions: Opioid Safety (DC), Hysterectomy (DC), OB Discharge Report, OB Food/Drug Interaction Guide, Opioid Safety, Post Operative Pain Discharge Attestations Time Spent in Discharge Care*: less than 30 min Quality Metrics Clinical Quality Measures [ No reported AMI, CVA or VTE this stay] Coding Level of Care Code Acute Chg FW DC note Diagnoses Postoperative state Z98.890
[2022-09-30 10:26] VITALS: BP 143/91; PULSE 90; RESP 18; TEMP 36.7; O2SAT 97
[2022-09-30 10:47] VITALS: BP 143/91; PULSE 90; RESP 18; TEMP 36.7; O2SAT 97
== END 2022-09-30 10:44 | disposition home or self-care (01) | DRG 743 ==
LOC: OBGYN 12:05
PROVIDERS: Admitting Provider Obstetrics & Gynecology; PCP Internal Medicine; Visit Provider Obstetrics & Gynecology
PROC: 0UT90ZZ Resection of Uterus, Open Approach (ICD-10-PCS; CPT 58150; principal; 2022-09-28 07:00)
DX: N93.9 Abnormal uterine and vaginal bleeding, unspecified (principal); G40.909 Epilepsy, unspecified, not intractable, without status epilepticus; F17.200 Nicotine dependence, unspecified, uncomplicated
CPT/HCPCS: 36415; 51702; 80048; 81025; 85025; 85027; 86850; 86900; 87086; 88307; J0131; J0360; J0690; J1100; J1170; J1200; J1940; J2250; J2405; J2704; J2710; J3010; J3490; J7030; J7121

== ENCOUNTER 2022-10-04 09:15 | Observation (INO) | payer BC, MEDICAID, SELFPAY ==
[2022-10-04] VITALS (17 sets, daily range): BP systolic 128–164; BP diastolic 67–96; PULSE 60–99; RESP 12–18; TEMP 36.5–36.9; O2SAT 95–100
--- NOTE | 2022-10-04 11:01 | CT_ITS ---
WS: [id number] CT ABDOMEN PELVIS TECHNIQUE: Contrast-enhanced CT of the abdomen and pelvis with coronal and sagittal reformatted image s. CLINICAL INFORMATION: post op increased pain COMPARISON: CT 2017 DLP: 805.[address] scans at [facility] use at least one of these dose optimization techniques: automated e xposure control; mA and/or kV adjustment per patient size (includes targeted exams where dose is matc hed to clinical indication); or iterative reconstruction. FINDINGS: Recently reported hysterectomy. Prior cholecystectomy. Moderate hydronephrosis LEFT kidney with delay ed nephrogram. Diffuse LEFT moderate ureterectasis extends down to the bladder. No visualized obstruc ting renal or ureteral calculi. Small amount of free fluid in the pelvis in the hysterectomy bed. Nor mal RIGHT renal parenchymal enhancement. No hydronephrosis in RIGHT kidney. Mild diffuse fatty infiltration liver. Prior cholecystectomy. Normal portal vein and splenic vein. No rmal spleen. Normal GE junction. Subsegmental atelectasis in the lung bases. Adrenal glands are adalgisa l. Normal pancreatic parenchymal enhancement. Normal caliber abdominal aorta. A few sigmoid diverticuli. No evidence of high-grade small or large bowel obstruction. Moderate urina ry distention of the bladder CT/CT abdomen pelvis w con* [id number] IMPRESSION: 1. Delayed RIGHT LEFT renal nephrogram with moderate LEFT hydronephrosis. Mode rate LEFT ureterectasis extends down to the level of the UVJ. No obstructing ca lculi. Recommend correlation with renal function and LEFT pyelonephritis. Urete ral obstruction or injury from recent hysterectomy is an additional considerati on. Consider urology consultation. 2. No hydronephrosis in RIGHT kidney. 3. Recent postoperative changes hysterectomy with a small amount of free fluid in the hysterectomy bed. 4. No other acute findings. Notified Fran Flores MD at 10/04/2022 11:55 AM.
--- NOTE | 2022-10-04 11:02 | W.ED.FEMALGU ---
HPI - Female Genitourinary General: Chief complaint: Urogenital-Female Stated complaint: posthysterectomy complications Time Seen by Provider: 10/04/22 10:53 History of Present Illness: Patient comes in with abdominal pain. States she had a partial hysterectomy 6 days ago. States that since then she was doing okay until about 2 days ago when she started having increased pain. States she has been unable to urinate and move her bowels appropriately. States that last night she lost control of her bladder function. Denies fever, but has had nausea and vomiting today. Associated symptoms: Reports abdominal pain and nausea; Deny headache(s) Date of Last Menstrual Period: 09/13/22 Review of Systems Const: Denies: fever(s) or body aches Eyes: Denies: change in vision or blurry vision ENMT: Denies: throat pain or odynophagia Card: Denies: chest pain or palpitations Resp: Denies: dyspnea or productive cough GI: Reports: abdominal pain, nausea and vomiting : Denies: flank pain or dysuria Musc: Denies: neck pain or back pain Skin/Breast: Denies: rash or pruritus Neuro: Denies: headache(s) or numbness in extremities Psych: Denies: anxiety or change in appetite Endo: Denies: polyuria or excessive sweating PFSH ED PFSH: Medical History Epilepsy Diagnosed at the age of 3. Has been on medication in the past but not currently. Last seizure was in 2020. She follows up with neurology Dr. Olu Martínez Reports having migraines without auras since about 2015 and this is managed by her primary care provider. No pertinent past medical history Denies diabetes, asthma, hypertension, DVT/PE PCP: Dr. Ram Surgical History S/P section x 2 2002, 2006 S/P cholecystectomy Laparoscopic procedure in 2016 Status post right foot surgery Arch removal---2019--right patellar fascia surgery Status post tubal ligation 2006 at time of second Family History Father Heart disease Hypertension Stroke Mother Hypertension Thyroid condition Denies family history of Colon cancer Ovarian cancer Diabetes Hyperlipidemia Breast cancer Uterine cancer Social History Smoking and tobacco status: current every day smoker (.5 PACK A DAY) Female Reproductive History: Date of last menstrual period: 09/13/22 Physical Exam Const: COMMON NORMALS: no acute distress, patient oriented x3, healthy appearing and alert HENMT: COMMON NORMALS: normocephalic and atraumatic HEAD & SCALP: normocephalic and atraumatic Eye: COMMON NORMALS: Equal, round and reactive pupils present and EOMs intact bilaterally PUPIL: Yes Equal, round and reactive pupils present Neck/C-Spine: COMMON NORMALS: full ROM and supple Resp: COMMON NORMALS: normal respiratory effort, No retractions and No use of accessory muscles Cardio: COMMON NORMALS: regular rate and regular rhythm RATE: regular rate RHYTHM: regular rhythm GI: COMMON NORMALS: Soft to palpation PALPATION: Yes Soft to palpation OTHER: Surgical wound is clean dry and intact, abdomen soft nondistended, generalized mild tenderness to palpation Back/Pelvis: COMMON NORMALS: thoracic and lumbar spine normal to inspection and no thoracic nor lumbar tenderness Extremity: COMMON NORMALS: normal to inspection and full ROM Neuro: COMMON NORMALS: patient oriented x3 SENSORIUM/ORIENTATION: Yes alert Psych: COMMON NORMALS: mental status grossly normal and cooperative Skin: COMMON NORMALS: no rashes or lesions noted and no wounds GENERAL SKIN EXAM: no rashes or lesions noted Course Vital Signs: Vital signs: Vital Signs Temperature 98.5 F 10/04/22 10:27 Pulse Rate 99 10/04/22 10:27 Respiratory Rate 18 10/04/22 11:48 Blood Pressure 164/89 10/04/22 10:27 Pulse Oximetry 100 10/04/22 10:27 Oxygen Delivery Me thod 10/04/22 10:[address] [facility] - Female Medical Decision Making Patient comes in with abdominal pain. States she had a partial hysterectomy 6 days ago. States that since then she was doing okay until about 2 days ago when she started having increased pain. States she has been unable to urinate and move her bowels appropriately. States that last night she lost control of her bladder function. Denies fever, but has had nausea and vomiting today. On physical exam her surgical wound is clean dry and intact. Her abdomen is soft, with mild generalized tenderness to palpation. It is nondistended. Will check labs, CT, treat pain with IV morphine, treat nausea with IV Zofran, give IV fluids, and reassess. On reassessment I talked to the patient about the test results. I discussed the case with urology, and Dr. Abraham came down to see the patient. He plans to take her to the operating room for definitive treatment of her ureteral obstruction. Lab Data 10/04/22 11:20 10/04/22 11:20 Radiology Impressions Abdomen/Pelvis CT 10/04/22 11:01 IMPRESSION: 1. Delayed RIGHT LEFT renal nephrogram with moderate LEFT hydronephrosis. Moderate LEFT ureterectasis extends down to the level of the UVJ. No obstructing calculi. Recommend correlation with renal function and LEFT pyelonephritis. Ureteral obstruction or injury from recent hysterectomy is an additional consideration. Consider urology consultation. 2. No hydronephrosis in RIGHT kidney. 3. Recent postoperative changes hysterectomy with a small amount of free fluid in the hysterectomy bed. 4. No other acute findings. Notified Fran Flores MD at 10/04/2022 11:55 AM. Laboratory Results WBC 10.7 10^3/uL (4.0-10.0) H 10/04/22 11:20 RBC 3.06 10^6/uL (4.1-5.3) L 10/04/22 11:20 Hgb 9.6 g/dL (11.5-15.3) L 10/04/22 11:20 Hct 28.9 % (37.0-47.0) L 10/04/22 11:20 MCV 94.4 fl (81-99) 10/04/22 11:20 MCH 31.4 pg (28.0-34.0) 10/04/22 11:20 MCHC 33.2 g/dL (30.0-36.0) 10/04/22 11:20 RDW 13.0 % (12.1-15.1) 10/04/22 11:20 Plt Count 482 10^3/cmm (130-400) H 10/04/22 11:20 MPV 9.4 fL (7.4-10.4) 10/04/22 11:20 Neut % (Auto) 77.6 % 10/04/22 11:20 Lymph % (Auto) 12.8 % 10/04/22 11:20 [place] % (Auto) 7.6 % 10/04/22 11:20 Eos % (Auto) 1.3 % 10/04/22 11:20 Baso % (Auto) 0.4 % 10/04/22 11:20 Neut # (Auto) 8.32 10^3/uL (1.8-7.7) H 10/04/22 11:20 Lymph # (Auto) 1.4 10^3/uL (0.8-4.8) 10/04/22 11:20 [place] # (Auto) 0.8 10^3/uL (0.2-0.9) 10/04/22 11:20 Eos # (Auto) 0.1 10^3/uL (0.0-0.8) 10/04/22 11:20 Baso # (Auto) 0.0 10^3/uL (0.0-0.1) 10/04/22 11:20 Nucleated RBC % (auto) 0 % 10/04/22 11:20 Nucleated RBCs # 0.0 /100WBC 10/04/22 11:20 Sodium 135 mmol/L (136-145) L 10/04/22 11:20 Potassium 3.5 mmol/L (3.5-5.1) 10/04/22 11:20 Chloride 98 mmol/L (98-107) 10/04/22 11:20 Carbon Dioxide 25 mmol/L (22-29) 10/04/22 11:20 Anion Gap 15.5 (5-19) 10/04/22 11:20 BUN 6 mg/dL (6-20) 10/04/22 11:20 Creatinine 1.0 mg/dL (0.5-0.9) H 10/04/22 11:20 GFR Calculation 60.8 mL/min (90-130) L 10/04/22 11:20 Glucose 97 mg/dL (65-115) 10/04/22 11:20 Calculated Osmolality 278 mOsm/kg (285-295) L 10/04/22 11:20 Lactate 0.7 mmol/L (0.5-2.2) 10/04/22 11:20 Calcium 9.3 mg/dL (8.5-10.5) 10/04/22 11:20 Magnesium 2.2 mg/dL (1.7-2.3) 10/04/22 11:20 Total Bilirubin 0.4 mg/dL (0.15-1.2) 10/04/22 11:20 AST 11 U/L (0-32) 10/04/22 11:20 ALT 10 U/L (0-33) 10/04/22 11:20 Alkaline Phosphatase 136 U/L (35-105) H 10/04/22 11:20 Total Protein 7.0 g/dL (6.6-8.7) 10/04/22 11:20 Albumin 3.7 g/dL (3.5-5.2) 10/04/22 11:20 Globulin 3.3 g/dL (1.3-4.6) 10/04/22 11:20 Lipase 7 U/L (13-60) L 10/04/22 11:20 Urine Color Yellow (Yellow) 10/04/22 11:10 Urine Appearance Clear (CLEAR) 10/04/22 11:10 Urine pH 7 (5-7) 10/04/22 11:10 Ur Specific [place] 1.005 (1.005-1.030) 10/04/22 11:10 Urine Protein Neg (Negative) 10/04/22 11:10 Urine Glucose (UA) Norm (Normal) 10/04/22 11:10 Urine Ketones 1+ (Negative) H 10/04/22 11:10 Urine Blood 3+ (Negative) H 10/04/22 11:10 Urine Nitrate Negative (Negative) 10/04/22 11:10 Urine Bilirubin Neg (Negative) 10/04/22 11:10 Urine Urobilinogen Norm mg/dL (Negative) 10/04/22 11:10 Ur Leukocyte Esterase Negative (Negative) 10/04/22 11:10 Urine RBC 0-4 /hpf (0-2) H 10/04/22 11:10 Urine WBC 0-4 /hpf (0-5) H 10/04/22 11:10 Ur Squamous Epith Cells 0-4 /hpf (0-5) H 10/04/22 11:10 Amorphous Sediment Not Reportable 10/04/22 11:10 Urine Bacteria Trace /hpf (NONE) 10/04/22 11:10 Discharge Plan Discharge Patient Disposition: Admitted As Inpatient Clinical Impression: Ureter obstruction Condition: Stable Coding Level of Care Code ED Field Applications Specialist for Chg Fwd Exam Comprehensive
[2022-10-04] MEDS: iohexol 350 mg/mL 500 mL Btl (per mL) IV (11:28)
[2022-10-04 11:29] LABS: Basophils % 0.4 %; Eosinophils # 0.1 10^3/uL (0.0-0.8); Eosinophils % 1.3 %; Hematocrit 28.9 % (37.0-47.0); Hemoglobin 9.6 g/dL (11.5-15.3); Lymphocytes # 1.4 10^3/uL (0.8-4.8); Lymphocytes % 12.8 %; Mean Corpuscular HGB Conc 33.2 g/dL (30.0-36.0); Mean Corpuscular Hemoglobin 31.4 pg (28.0-34.0); Mean Corpuscular Volume 94.4 fl (81-99); Mean Platelet Volume 9.4 fL (7.4-10.4); Monocytes # 0.8 10^3/uL (0.2-0.9); Monocytes % 7.6 %; Neutrophils # 8.32 10^3/uL (1.8-7.7); Neutrophils % 77.6 %; Nucleated Red Blood Cells % 0 %; Platelet Count 482 10^3/cmm (130-400); Red Blood Count 3.06 10^6/uL (4.1-5.3); White Blood Count 10.7 10^3/uL (4.0-10.0)
[2022-10-04 11:46] LABS: Lactate (Lactic Acid level) 0.7 mmol/L (0.5-2.2)
[2022-10-04] MEDS: sodium chloride 0.9% 1,000 ML 999 ML IV (11:47)
[2022-10-04 11:48] LABS: Alanine Aminotransferase 10 U/L (0-33); Albumin Level 3.7 g/dL (3.5-5.2); Alkaline Phosphatase 136 U/L (35-105); Anion Gap 15.5 (5-19); Aspartate Amino Transferase 11 U/L (0-32); Blood Urea Nitrogen 6 mg/dL (6-20); Calcium 9.3 mg/dL (8.5-10.5); Carbon Dioxide 25 mmol/L (22-29); Chloride 98 mmol/L (98-107); Globulin 3.3 g/dL (1.3-4.6); Glomerular Filtration Rate 60.8 mL/min (90-130); Glucose 97 mg/dL (65-115); Lipase 7 U/L (13-60); Magnesium 2.2 mg/dL (1.7-2.3); Osmolality Calculated 278 mOsm/kg (285-295); Potassium 3.5 mmol/L (3.5-5.1); Sodium 135 mmol/L (136-145); Total Bilirubin 0.4 mg/dL (0.15-1.2)
[2022-10-04] MEDS: morphine 4 mg/mL SDV 1 mL IVP ×2 (11:48→15:23)
[2022-10-04] MEDS: ondansetron 2 mg/ML SDV 2 mL 4 MG IVP (11:48)
[2022-10-04 11:49] LABS: Urine Color Yellow (Yellow)
[2022-10-04 11:50] LABS: Add Urine Microscopic? YES; Bilirubin Urine Neg (Negative); Blood Urine 3+ (Negative); Glucose Urine UA Norm (Normal); Ketones Urine 1+ (Negative); Leukocyte Esterase Urine Negative (Negative); Nitrate Urine Negative (Negative); Protein Urine Neg (Negative); Specific Gravity, Urine 1.005 (1.005-1.030); Urine Appearance Clear (CLEAR); Urobilinogen Urine Norm (Negative); pH Urine 7 (5-7)
[2022-10-04 11:51] LABS: Add Urine Culture? No; Bacteria Urine TRACE /hpf; RBC Urine 0-4 /hpf (0-2); Squamous Epithelial Cell Urine 0-4 /hpf (0-5); WBC Urine 0-4 /hpf (0-5)
--- NOTE | 2022-10-04 15:08 | PM.HP ---
Providers/Chief Complaint Admitting Physician: Jarad Primary Care Provider: Saul Ram DO Chief Complaint: posthysterectomy complications History of Present Illness Priya Lucas is a 42 year old female who was 6 days postop transabdominal hysterectomy for dysfunctional uterine bleeding. Initially did well but started having right-sided flank pain over the last several days and then started having difficulty urinating and controlling her urine. She said that she felt as though she was having her period when she had a gush of fluid. Did not feel typical for bladder sensation. Has had persistent insensate incontinence since then. Presented to the emergency department today had a CT scan that demonstrated left ureteral obstruction down to the level of the deep pelvis probably 2 or 3 cm above the bladder at most. There is no fluid collection but there is a lot of inflammation on that area of the left distal ureter the ureter is markedly dilated and the kidney shows delayed uptake and excretion compared to the right side. I reviewed with the patient this likely represents a ureteral injury at this point cannot characterize it further except that with the leakage of urine and insensate fashion and may well represent at least a partial transection with drainage through the vaginal cuff. I have recommended a retrograde ureteropyelogram and a very gentle attempt at negotiating a wire up the right ureter and if possible stent placement. If unsuccessful we will make arrangements for interventional radiology for attempted antegrade stent placement and if unsuccessful percutaneous nephrostomy I explained all this in detail to the patient. She has good questions and seemed content with my explanations and the plan as outlined above. I reviewed that this has the potential to be a fairly prolonged drawnout process with a percutaneous nephrostomy tube and possibly open surgery for correction and reimplantation of the ureter and a delayed date. Also reviewed that that would need to take place in an institution with high volume of these types of surgeries. She expressed understanding and is given informed consent for cystoscopy, LEFT retrograde, possible stent placement Review of Systems Const: Denies: fever(s) or chills Eyes: Denies: change in vision or blurry vision ENMT: Denies: throat pain or hoarseness Card: Denies: chest pain or palpitations Resp: Denies: dyspnea or productive cough GI: Reports: abdominal pain, nausea and vomiting : Reports: flank pain, difficulty voiding and dribbling Musc: Reports: back pain; Denies: joint redness Skin/Breast: Denies: rash or new lesions Neuro: Denies: confusion, behavioral changes or Slurred speech present Psych: Reports: anxiety (Situational anxiety only); Denies: hopelessness Endo: Denies: flushing Everardo/Lymph: Denies: easy bruising, easy bleeding or enlarged lymph nodes All/Imm: Denies: urticaria or acute wheezing Medications/Allergies Home Medications Medication Instructions Recorded Confirmed Last Taken Type ibuprofen 200 mg tablet (Advil) 200 mg PO Q6H PRN Pain 11/27/19 10/04/22 09/16/22 History mirtazapine 7.5 mg tablet 7.5 mg PO BEDTIME 02/18/21 10/04/22 10/03/22 History oxycodone 5 mg tablet 5 mg PO Q4H PRN Pain 10/04/22 10/04/22 10/03/22 History Allergies Allergy/AdvReac Type Severity Reaction Status Date / Time sumatriptan [From Imitrex] Allergy anaphylaxis Verified 09/28/22 06:02 ketorolac [From Toradol] AdvReac ADR-Itching Verified 09/28/22 06:02 PFSH Acute PFSH: Medical History (Updated 10/04/22 @ 15:17 by Ry Abraham MD) Abnormal uterine bleeding (AUB) Epilepsy Diagnosed at the age of 3. Has been on medication in the past but not currently. Last seizure was in 2020. She follows up with neurology Dr. Olu Martínez Reports having migraines without auras since about 2015 and this is managed by her primary care provider. Surgical History (Updated 10/04/22 @ 15:15 by Ry Abraham MD) S/P section x 2 2002, 2006 S/P cholecystectomy Laparoscopic procedure in 2016 Status post abdominal hysterectomy Status post right foot surgery Arch removal---2019--right patellar fascia surgery Status post tubal ligation 2006 at time of second Family History Father Heart disease Hypertension Stroke Mother Hypertension Thyroid condition Denies family history of Colon cancer Ovarian cancer Diabetes Hyperlipidemia Breast cancer Uterine cancer Social History Smoking and tobacco status: current every day smoker (.5 PACK A DAY) Female Reproductive History: Date of last menstrual period: 09/13/22 Vitals/I&O/Wt Last Vital Signs Temp 98.5 F 10/04/22 10:27 Pulse 99 10/04/22 10:27 Resp 18 10/04/22 11:48 BP 164/89 10/04/22 10:27 Pulse Ox 100 10/04/22 10:27 O2 Del Method 10/04/22 10:27 Weight last 48 hrs Weight 180 lb Physical Exam Const: COMMON NORMALS: no acute distress, alert and well nourished GENERAL APPEARANCE: well kempt and well developed ORIENTATION/CONSCIOUSNESS: not confused HENMT: COMMON NORMALS: normocephalic HEAD & SCALP: normal to inspection and normocephalic Eye: COMMON NORMALS: conjunctivae normal and no scleral icterus CONJUNCTIVA: Yes conjunctivae normal Neck/C-Spine: GENERAL: Yes normal visual inspection Lymph: OTHER: No palpable lymphadenopathy Chest: OTHER: Normal chest movements Resp: COMMON NORMALS: normal respiratory effort EFFORT & INSPECTION: Yes able to speak in complete sentences, No labored and No Actively coughing Cardio: OTHER: Regular rate and rhythm GI: OTHER: Abdominal tenderness bilaterally. Left greater than sign right. Some CVA tenderness on the left. : OTHER: Bladder is nondistended. She is tender in her suprapubic area but not exquisitely so. Normal external female genitalia. No fluid in the vagina. No active bleeding. Back/Pelvis: OTHER: Left CVA tenderness Extremity: COMMON NORMALS: no clubbing, cyanosis or edema Neuro: COMMON NORMALS: no focal motor deficits SENSORIUM/ORIENTATION: Yes alert Psych: COMMON NORMALS: mental status grossly normal APPEARANCE: Yes grossly normal and Yes well kempt ATTITUDE: Yes calm and Yes engaged Skin: COMMON NORMALS: no rashes or lesions noted and no jaundice GENERAL SKIN EXAM: no rashes or lesions noted Data 10/04/22 11:20 10/04/22 11:20 A&P Assessment and plan (1) Ureter obstruction: Likely ureteral injury from surgery. Recommended retrograde and if possible retrograde stent placement. If not will require interventional radiology where available for percutaneous nephrostomy and if possible antegrade stent placement. (2) Incontinence without sensory awareness: Suspicious for possible ureteral extravasation and leakage from vaginal cuff. Attestations Medical Necessity Statement*: Planning on taking her to the operating room for the above procedure. Observe overnight if all goes well and likely discharge tomorrow. If unsuccessful will need to make plans for accessing interventional radiology where available. Coding Level of Care Code Acute Field Radio Operator for g Fwd Exam Comprehensive Diagnoses Ureter obstruction N13.5 Incontinence without sensory awareness N39.42
--- NOTE | 2022-10-04 15:43 | ANES.PREANE2 ---
Pre-Anesthetic Assessment Height/Weight: Height 1.52 m Weight 81.647 kg Temp Pulse Resp BP Pulse Ox O2 Del Method 98.5 F 99 18 164/89 100 10/04/22 10:27 10/04/22 10:27 10/04/22 15:23 10/04/22 10:27 10/04/22 10:27 10/04/22 10:27 Preop Diagnosis: AUB Operation Date: 10/04/22 16:50 Proposed Procedures p Cystoscopy(Not Applicable) - Ry Abraham MD s Retrograde Pyelogram(Left) - Ry Abraham MD Familial anesthetic complications: None Was Beta Eber taken within 24 hours: N/A Was Clonidine taken within 24 hours: N/A Last intake: > 8hrs Social Tobacco and No alcohol Exam alert, oriented x 3, clear to auscultation bilaterally and regular rate & rhythm Airway Mallampati: Class II Dentition: false and partials Neuropsych Seizure (epilepsy - not on antiseizures (last seizure > 1 year ago)) Anesthetic Plan ASA status: 2 Anesthesia: General Risk of > 500 ml blood loss (7ml/kg in children): No Medications/Allergies Home Medications Medication Instructions Recorded Confirmed Last Taken Type ibuprofen 200 mg tablet (Advil) 200 mg PO Q6H PRN Pain 11/27/19 10/04/22 09/16/22 History mirtazapine 7.5 mg tablet 7.5 mg PO BEDTIME 02/18/21 10/04/22 10/03/22 History oxycodone 5 mg tablet 5 mg PO Q4H PRN Pain 10/04/22 10/04/22 10/03/22 History Allergies Allergy/AdvReac Type Severity Reaction Status Date / Time sumatriptan [From Imitrex] Allergy anaphylaxis Verified 09/28/22 06:02 ketorolac [From Toradol] AdvReac ADR-Itching Verified 09/28/22 06:02 [facility] Anesthesia Medical History (Updated 10/04/22 @ 15:17 by Ry Abraham MD) Abnormal uterine bleeding (AUB) Epilepsy Diagnosed at the age of 3. Has been on medication in the past but not currently. Last seizure was in 2020. She follows up with neurology Dr. Olu Martínez Reports having migraines without auras since about 2015 and this is managed by her primary care provider. Surgical History (Updated 10/04/22 @ 15:15 by Ry Abraham MD) S/P section x 2 2002, 2007 S/P cholecystectomy Laparoscopic procedure in 2016 Status post abdominal hysterectomy Status post right foot surgery Arch removal---2019--right patellar fascia surgery Status post tubal ligation 2007 at time of second Family History Father Heart disease Hypertension Stroke Mother Hypertension Thyroid condition Denies family history of Colon cancer Ovarian cancer Diabetes Hyperlipidemia Breast cancer Uterine cancer Social History Smoking and tobacco status: current every day smoker (.5 PACK A DAY) Female Reproductive History Date of last menstrual period: 09/13/22 Data Anesthesia 10/04/22 11:20 10/04/22 11:20 Short CBC 10/04/22 Range/Units 11:20 WBC 10.7 H (4.0-10.0) 10^3/uL Hgb 9.6 L (11.5-15.3) g/dL Hct 28.9 L (37.0-47.0) % MCV 94.4 (81-99) fl Plt Count 482 H (130-400) 10^3/cmm Neut % (Auto) 77.6 % Neut # (Auto) 8.32 H (1.8-7.7) 10^3/uL BMP 10/04/22 11:20 Sodium 135 L Potassium 3.5 Chloride 98 Carbon Dioxide 25 BUN 6 Creatinine 1.0 H Glucose 97 Calcium 9.3 Liver Function 10/04/22 Range/Units 11:20 Total Bilirubin 0.4 (0.15-1.2) mg/dL AST 11 (0-32) U/L ALT 10 (0-33) U/L Alkaline Phosphatase 136 H (35-105) U/L Albumin 3.7 (3.5-5.2) g/dL Urine 10/04/22 Range/Units 11:10 Urine Color Yellow (Yellow) Urine Appearance Clear (CLEAR) Urine pH 7 (5-7) Ur Specific [place] 1.005 (1.005-1.030) Urine Protein Neg (Negative) Urine Glucose (UA) Norm (Normal) Urine Ketones 1+ H (Negative) Urine Nitrate Negative (Negative) Urine Bilirubin Neg (Negative) Ur Leukocyte Esterase Negative (Negative) Urine RBC 0-4 H (0-2) /hpf Urine WBC 0-4 H (0-5) /hpf Cardiac Studies: No Data to Display
[2022-10-04] MEDS: sodium chloride 0.9% 1,000 ML 30 ML IV (16:03)
[2022-10-04] MEDS: cefTRIAXone 2,000 MG in sodium chloride 0.9% (plus) 50 ML 100 MG IV (16:15)
--- NOTE | 2022-10-04 16:44 | P.OP_ITS ---
Operative Report Date of procedure: October 04, 2022 Pre-op diagnosis: Possible left distal ureteral injury Post-op findings: 1. Ureterovaginal fistula, acute, postoperatively 2. Left ureteral obstruction Procedure done: 1. Cystoscopy, LEFT retrograde ureterogram 2. Vaginal exam under anesthesia Implants: None Specimens removed/disposition: None Surgeon: Jarad Estimated blood loss: Minimal Urine output: Not measured Complications: None Findings: Anesthesia: General Condition: Stable Disposition: PACU then [employer] unit Intraoperative findings: * Normal cystoscopic findings of the bladder. No evidence of bladder injury. * Injury to the left distal ureter approximately 1 cm proximal to the ureteral orifice with extravasation of contrast demonstrated on retrograde and blue extravasation into the vagina representing a ureteral vaginal fistula Brief History: Laisha is a very pleasant 42-year-old white female who I evaluated for the first time today at the request of the emergency department with evidence of a left distal ureteral obstruction approximately 1 week post hysterectomy. She also complained of some insensate incontinence and thought it might be coming from her vagina. No evidence of a stone on CT scan. There was some inflammatory changes in that portion of her pelvis. No obvious fluid collection within the pelvis. It was recommended that we perform retrograde ureteropyelogram and if possible ureteral stent placement. Did review that there is a pretty good chance that might not be successful and if not that she would require evaluation with interventional radiology for either percutaneous nephrostomy tube by itself or under the best circumstances antegrade placement of a stent into the ureter with advancement into the bladder. Also reviewed longer-term expectations of repair etc. if conservative measures of stenting are not successful Procedure: After urgent evaluation examination and obtaining of informed consent she was taken to the operating suite on 10/04/2022 where general anesthesia was administered without difficulty after appropriate timeout was performed, SCDs confirmed to be functioning, preoperative antibiotics administered, beta-ronald protocol confirmed. Prepped and draped in usual sterile fashion in dorsolithotomy position pain careful attention to avoiding pressure points. 21 Bengali cystoscope with 30 degree lens was introduced to the urethra meatus and advanced into the bladder to videoscopy. Bladder was systematically examined. There was no evidence of any perforation or injury to the bladder An 8 Bengali cone-tip catheter was intubated into the left ureteral orifice for a retrograde ureteropyelogram demonstrating with very slow infusion of methylene blue stained contrast a fairly normal distal segment of the ureter in course and caliber that extended no more than 1 cm and then there was medial extravasation and no filling of the ureter proximal to that point. A second instillation showed the same effect. Total of about 2 cc to 3 cc was injected. The vagina was then quickly inspected with the posterior speculum and methylene blue stained fluid emanated from the left anterior aspect of the vaginal cuff. The vaginal vault was flushed again with saline and then reinspected and more blue was seen coming from the same spot. At this point it was decided to complete the procedure and not attempt a wire passage. The bladder was drained and the procedure was completed. She tolerated procedure well without complications. Awakened in the operating room and returned to the recovery room in stable condition. PLANS: 1. Observe overnight in the OB suite 2. Make arrangements tomorrow for hopefully soon outpatient percutaneous nephrostomy tube placement and if possible antegrade stent placement. 3. Reviewed the likelihood that this will require open repair at some point at a university setting if stent could not be obtained.
--- NOTE | 2022-10-04 16:58 | SC_ITS ---
WS: [id number] C-arm fluoroscopy for left retrograde urogram, 10/04/2022 Clinical Data: blocked ureter Comparison: None. Findings: Dr. Abraham injected contrast material and found a tear of the distal left ureter and a fistula to t he vagina. SC/C-arm [place] for Urology Impression: Left retrograde urogram.
--- NOTE | 2022-10-04 17:05 | PC.NURSE ---
upon arrival to the OR room, discussing with patient to moved to the OR table, she verbalized that her right leg, anterior thigh, was numb but it still works fine
--- NOTE | 2022-10-04 17:30 | ANE.PACU2 ---
Inpatient post-anesthesia follow up: Airway intact: Yes Vital signs: Temperature 97.7 F Pulse Rate 95 Respiratory Rate 14 Blood Pressure 136/90 Pulse Oximetry 100 Oxygen Delivery Me thod Room Air Oxygen Flow Rate 0 Fraction of Inspir ed Oxygen Hydration adequate: Yes Nausea and vomiting: No Pain level: 0 Mental status: Baseline
[2022-10-04] MEDS: docusate sodium 100 mg Capsule PO (18:26)
[2022-10-04] MEDS: famotidine 20 mg/2 mL INJ IVP (18:26)
[2022-10-04] MEDS: oxyCODONE 5 mg IR Tab/Cap PO (18:26)
[2022-10-04] MEDS: mirtazapine 15 mg Tablet 7.5 MG PO (20:42)
[2022-10-04] MEDS: dextrose 5%-ns + KCl 20 20 MEQ/1,000 ML BAG 50 MEQ IV (20:47)
--- NOTE | 2022-10-04 20:57 | PC.NURSE ---
Patient up ad ed and ambulating well
[2022-10-05 01:16] VITALS: BP 134/84; PULSE 69; RESP 16; TEMP 36.7; O2SAT 93
[2022-10-05 03:25] VITALS: TEMP 36.6
[2022-10-05 03:39] VITALS: RESP 16
[2022-10-05] MEDS: oxyCODONE 5 mg IR Tab/Cap PO (03:39)
[2022-10-05] MEDS: cefTRIAXone 1,000 MG in sodium chloride 0.9% (plus) 50 ML 100 MG IV (03:40)
[2022-10-05 04:00] LABS: Basophils % 0.2 %; Hematocrit 28.3 % (37.0-47.0); Lymphocytes # 0.7 10^3/uL (0.8-4.8); Lymphocytes % 8.8 %; Mean Corpuscular HGB Conc 31.8 g/dL (30.0-36.0); Mean Corpuscular Hemoglobin 31.6 pg (28.0-34.0); Mean Corpuscular Volume 99.3 fl (81-99); Mean Platelet Volume 9.9 fL (7.4-10.4); Monocytes # 0.3 10^3/uL (0.2-0.9); Monocytes % 3.2 %; Neutrophils # 7.14 10^3/uL (1.8-7.7); Neutrophils % 87.3 %; Nucleated Red Blood Cells % 0 %; Platelet Count 260 10^3/cmm (130-400); Red Blood Count 2.85 10^6/uL (4.1-5.3); Red Cell Distribution Width 13.1 % (12.1-15.1); White Blood Count 8.2 10^3/uL (4.0-10.0)
[2022-10-05 04:20] LABS: Anion Gap 13.9 (5-19); Blood Urea Nitrogen 6 mg/dL (6-20); Calcium 8.2 mg/dL (8.5-10.5); Carbon Dioxide 23 mmol/L (22-29); Chloride 103 mmol/L (98-107); Glomerular Filtration Rate 78.7 mL/min (90-130); Glucose 159 mg/dL (65-115); Osmolality Calculated 283 mOsm/kg (285-295); Potassium 3.9 mmol/L (3.5-5.1); Sodium 136 mmol/L (136-145)
[2022-10-05 05:00] VITALS: BP 146/89; PULSE 88; RESP 16; TEMP 37.4; O2SAT 95
[2022-10-05 05:18] LABS: Slide Review Slide Review Perform
[2022-10-05] MEDS: famotidine 20 mg/2 mL INJ IVP (06:14)
--- NOTE | 2022-10-05 07:13 | P.DS_ITS ---
Discharge Providers Date of Admission: 10/04/22 16:56 Date of Discharge: October 05, 2022 Attending Provider at Admission: Ry Abraham MD Attending Provider at Discharge: Ry Abraham MD Primary Care Provider: Saul Ram DO Diagnoses at Discharge Discharge Diagnosis (1) Intraoperative ureteral injury: Status: Acute (2) Ureter obstruction: Status: Acute (3) Ureterovaginal fistula: Status: Acute (4) Incontinence without sensory awareness: Status: Acute Reason for Visit Reason for Visit: posthysterectomy complications Brief History: Laisha is a very pleasant 42-year-old white female who is about a week postop transabdominal hysterectomy. Her initial postoperative period was unremarkable. She did have some mild left-sided flank pain but did not think much of it. On the day before admission she started having increasing pain and developed large amount of insensate incontinence that she thought might be coming from the vagina. CT scan in the emergency department demonstrated left ureteral obstruction down to the level of about a centimeter to 2 cm above the bladder. No stones were seen. There did appear to be a lot of inflammation in that area. No fluid accumulation. It was felt clinically that this would represent an intraoperative injury to the ureter and it was recommended she go to the operating room urgently for cysto scopy retrograde possible stent placement. Hospital Course Hospital Course She was taken directly from the emergency department to the operating room where a cystoscopy and retrograde was performed. The level of the injury was about a centimeter proximal to the ureteral orifice. There was prompt extravasation. Some methylene blue had been mixed with radiographic contrast and it was seen also to be traversing into the vagina near the anterior left aspect of the vaginal cuff. This confirmed the leakage that she was having to be ureteral vaginal fistula. An attempted a stent put from below was not performed due to the findings and the hope of avoiding making it worse. She was observed overnight and did well. Her pain was well controlled. There was no evidence of infectious concerns. Was maintained on antibiotics. Was felt to be a good candidate for further convalescence at home and was discharged on postoperative day #1. We had a long discussion regarding the sequence of events following this hospital stay. We will pursue aggressively a left percutaneous nephrostomy tube as a minimum and if possible potentially an antegrade stent placement although I do not think that will be likely. Definitive repair will be postponed for the immediate period and we will consult [facility] for planning for definitive repair. All of the above was explained in detail to the patient and she had a good understanding. I also reviewed with her . She was discharged on postoperative day #1 in stable condition. Physical Exam Const: COMMON NORMALS: no acute distress, alert and well nourished GENERAL APPEARANCE: well kempt and well developed ORIENTATION/CONSCIOUSNESS: not confused Neck/C-Spine: GENERAL: Yes normal visual inspection Chest: OTHER: Normal chest movements Resp: COMMON NORMALS: normal respiratory effort EFFORT & INSPECTION: Yes able to speak in complete sentences, No labored and No Actively coughing Neuro: COMMON NORMALS: no focal motor deficits SENSORIUM/ORIENTATION: Yes alert Psych: COMMON NORMALS: mental status grossly normal APPEARANCE: Yes grossly normal and Yes well kempt ATTITUDE: Yes calm and Yes engaged Discharge Data Studies Completed and Pending Completed Studies During Hospitalization Category Date Time Status CT abdomen pelvis w con* [id number] Stat Cat Scan 10/04/22 11:01 Completed Pending at discharge Category Date Time Status C-arm FL for Urology Routine Exams 10/04/22 16:58 Taken Radiology Impressions Abdomen/Pelvis CT 10/04/22 11:01 IMPRESSION: 1. Delayed RIGHT LEFT renal nephrogram with moderate LEFT hydronephrosis. Moderate LEFT ureterectasis extends down to the level of the UVJ. No obstructing calculi. Recommend correlation with renal function and LEFT pyelonephritis. Ureteral obstruction or injury from recent hysterectomy is an additional consideration. Consider urology consultation. 2. No hydronephrosis in RIGHT kidney. 3. Recent postoperative changes hysterectomy with a small amount of free fluid in the hysterectomy bed. 4. No other acute findings. Notified Fran Flores MD at 10/04/2022 11:55 AM. Laboratory Results WBC 8.2 10^3/uL (4.0-10.0) 10/05/22 03:50 RBC 2.85 10^6/uL (4.1-5.3) L 10/05/22 03:50 Hgb 9.0 g/dL (11.5-15.3) L 10/05/22 03:50 Hct 28.3 % (37.0-47.0) L 10/05/22 03:50 MCV 99.3 fl (81-99) H D 10/05/22 03:50 MCH 31.6 pg (28.0-34.0) 10/05/22 03:50 MCHC 31.8 g/dL (30.0-36.0) 10/05/22 03:50 RDW 13.1 % (12.1-15.1) 10/05/22 03:50 Plt Count 260 10^3/cmm (130-400) D 10/05/22 03:50 MPV 9.9 fL (7.4-10.4) 10/05/22 03:50 Neut % (Auto) 87.3 % 10/05/22 03:50 Lymph % (Auto) 8.8 % 10/05/22 03:50 [place] % (Auto) 3.2 % 10/05/22 03:50 Eos % (Auto) 0.0 % 10/05/22 03:50 Baso % (Auto) 0.2 % 10/05/22 03:50 Neut # (Auto) 7.14 10^3/uL (1.8-7.7) 10/05/22 03:50 Lymph # (Auto) 0.7 10^3/uL (0.8-4.8) L 10/05/22 03:50 [place] # (Auto) 0.3 10^3/uL (0.2-0.9) 10/05/22 03:50 Eos # (Auto) 0.0 10^3/uL (0.0-0.8) 10/05/22 03:50 Baso # (Auto) 0.0 10^3/uL (0.0-0.1) 10/05/22 03:50 Nucleated RBC % (auto) 0 % 10/05/22 03:50 Nucleated RBCs # 0.0 /100WBC 10/05/22 03:50 Sodium 136 mmol/L (136-145) 10/05/22 03:50 Potassium 3.9 mmol/L (3.5-5.1) 10/05/22 03:50 Chloride 103 mmol/L (98-107) 10/05/22 03:50 Carbon Dioxide 23 mmol/L (22-29) 10/05/22 03:50 Anion Gap 13.9 (5-19) 10/05/22 03:50 BUN 6 mg/dL (6-20) 10/05/22 03:50 Creatinine 0.8 mg/dL (0.5-0.9) 10/05/22 03:50 GFR Calculation 78.7 mL/min (90-130) L 10/05/22 03:50 Glucose 159 mg/dL (65-115) H 10/05/22 03:50 Calculated Osmolality 283 mOsm/kg (285-295) L 10/05/22 03:50 Lactate 0.7 mmol/L (0.5-2.2) 10/04/22 11:20 Calcium 8.2 mg/dL (8.5-10.5) L 10/05/22 03:50 Magnesium 2.2 mg/dL (1.7-2.3) 10/04/22 11:20 Total Bilirubin 0.4 mg/dL (0.15-1.2) 10/04/22 11:20 AST 11 U/L (0-32) 10/04/22 11:20 ALT 10 U/L (0-33) 10/04/22 11:20 Alkaline Phosphatase 136 U/L (35-105) H 10/04/22 11:20 Total Protein 7.0 g/dL (6.6-8.7) 10/04/22 11:20 Albumin 3.7 g/dL (3.5-5.2) 10/04/22 11:20 Globulin 3.3 g/dL (1.3-4.6) 10/04/22 11:20 Lipase 7 U/L (13-60) L 10/04/22 11:20 Urine Color Yellow (Yellow) 10/04/22 11:10 Urine Appearance Clear (CLEAR) 10/04/22 11:10 Urine pH 7 (5-7) 10/04/22 11:10 Ur Specific [place] 1.005 (1.005-1.030) 10/04/22 11:10 Urine Protein Neg (Negative) 10/04/22 11:10 Urine Glucose (UA) Norm (Normal) 10/04/22 11:10 Urine Ketones 1+ (Negative) H 10/04/22 11:10 Urine Blood 3+ (Negative) H 10/04/22 11:10 Urine Nitrate Negative (Negative) 10/04/22 11:10 Urine Bilirubin Neg (Negative) 10/04/22 11:10 Urine Urobilinogen Norm mg/dL (Negative) 10/04/22 11:10 Ur Leukocyte Esterase Negative (Negative) 10/04/22 11:10 Urine RBC 0-4 /hpf (0-2) H 10/04/22 11:10 Urine WBC 0-4 /hpf (0-5) H 10/04/22 11:10 Ur Squamous Epith Cells 0-4 /hpf (0-5) H 10/04/22 11:10 Amorphous Sediment Not Reportable 10/04/22 11:10 Urine Bacteria Trace /hpf (NONE) 10/04/22 11:10 Procedures Performed Cystoscopy, left retrograde ureteropyelogram Vitals Last Vital Signs Temp 97.9 F 10/05/22 03:25 Pulse 69 10/05/22 01:16 Resp 16 10/05/22 03:39 BP 134/84 10/05/22 01:16 Pulse Ox 93 10/05/22 01:16 O2 Del Method 10/05/22 01:16 O2 Flow Rate 6 10/04/22 17:25 Discharge Plan Discharge Patient Disposition: Home Condition: Stable Prescriptions: New sulfamethoxazole-trimethoprim 800-160 mg tablet 1 tab PO BID Qty: 28 2RF Percocet 5-325 mg tablet 1 tab PO Q6H Qty: 20 0RF Continued ibuprofen [Advil] 200 mg tablet 200 mg PO Q6H PRN (Reason: Pain) mirtazapine 7.5 mg tablet 7.5 mg PO BEDTIME Discontinued oxycodone 5 mg tablet 5 mg PO Q4H PRN (Reason: Pain) Discharge Orders: Discharge Order (Routine); Ordered 10/05/22 Ordered By: Ry Abraham Referrals: Saul Ram DO [Primary Care Provider] - Discharge Diet: Usual diet Discharge Activity: Limit activity as instructed Patient Instructions: Opioid Safety Activity Restrictions/Additional Instructions: Urology instructions: 1. We will start immediately working for consult to [facility] interventional radiology for placement of a left percutaneous nephrostomy tube or internal left ureteral stent. I will be surprised if they can actually get a stent through the area of injury. 2. We will also pending the results of the above start making plans for consultation to the [facility] for their advice regarding timing of repair. 3. I have sent a prescription for some pain medication but I expect that she will not have a whole lot of pain so use judiciously. He will need to stay on antibiotics as well. A new prescription has been sent for that. 4. Please call our office at [phone] if you have not heard from us in the next couple days regarding the tube placement. Discharge Attestations Time Spent in Discharge Care*: greater than 30 min Quality Metrics Clinical Quality Measures [ No reported AMI, CVA or VTE this stay] Coding Level of Care Code Acute [facility] note Diagnoses Intraoperative ureteral injury N99.81 Ureter obstruction N13.5 Ureterovaginal fistula N82.1 Incontinence without sensory awareness N39.42
[2022-10-05 07:45] VITALS: BP 155/91; PULSE 90; RESP 15; TEMP 37.2; O2SAT 96
== END 2022-10-05 07:47 | disposition home or self-care (01) ==
LOC: ER 15:03 → OR 16:09 → OBGYN 16:56
PROVIDERS: Admitting Provider Urology; Emergency Provider Emergency Medicine; PCP Internal Medicine; Visit Provider Urology
PROC: 0TJB8ZZ Inspection of Bladder, Via Natural or Artificial Opening Endoscopic (ICD-10-PCS; CPT 52000; principal; 2022-10-04 16:30)
PROC: (CPT 74420; 2022-10-04 16:30)
PROC: (CPT 52000; 2022-10-04 16:30)
DX: N99.89 Other postprocedural complications and disorders of genitourinary system (principal); N82.1 Other female urinary-genital tract fistulae; N13.5 Crossing vessel and stricture of ureter without hydronephrosis; N39.42 Incontinence without sensory awareness; F17.210 Nicotine dependence, cigarettes, uncomplicated
CPT/HCPCS: 52000; 36415; 74177; 76000; 80048; 80053; 81001; 83605; 83690; 83735; 85025; 96365; 96366; 96367; 96375; 96376; 99285; G0378; J0330; J0696; J1100; J2250; J2270; J2405; J2704; J2710; J3010; J3490; J7030; Q9967; Q9968

== ENCOUNTER 2022-11-05 10:24 | Emergency (ER) | payer BC, MEDICAID, SELFPAY ==
[2022-11-05 10:46] VITALS: BP 146/83; PULSE 73; RESP 18; TEMP 36.7
--- NOTE | 2022-11-05 11:54 | W.ED.GENADLT ---
HPI - General Adult General: Chief complaint: General Medical Stated complaint: tube stitches pulled out post surgery Time Seen by Provider: 11/05/22 11:32 History of Present Illness: 42-year-old female in with left-sided nephrostomy tube who was worried that it starting to pull out. She moves wrong in bed and she believes she broke the stitch. The patient then bandaged this and presented immediately to the emergency department she does not feel like it is moved appreciably since that time [facility] ED PFSH: Medical History Abnormal uterine bleeding (AUB) Epilepsy Diagnosed at the age of 3. Has been on medication in the past but not currently. Last seizure was in 2020. She follows up with neurology Dr. Olu Martínez Reports having migraines without auras since about 2015 and this is managed by her primary care provider. Surgical History S/P section x 2 2002, 2006 S/P cholecystectomy Laparoscopic procedure in 2015 Status post abdominal hysterectomy Status post right foot surgery Arch removal---2019--right patellar fascia surgery Status post tubal ligation 2006 at time of second Family History Father Heart disease Hypertension Stroke Mother Hypertension Thyroid condition Denies family history of Colon cancer Ovarian cancer Diabetes Hyperlipidemia Breast cancer Uterine cancer Female Reproductive History: Date of last menstrual period: 09/13/22 Physical Exam Const: COMMON NORMALS: no acute distress and patient oriented x3 Resp: COMMON NORMALS: clear to auscultation bilaterally AUSCULTATION: clear to auscultation bilaterally Cardio: COMMON NORMALS: regular rate and regular rhythm RATE: regular rate RHYTHM: regular rhythm Neuro: COMMON NORMALS: patient oriented x3 Skin: NARRATIVE SKIN EXAM: Left-sided nephrostomy tube that has slightly withdrawn from previous position without sutures around it. Course ED course: I recommended that we sutured this backend so it does not move anymore she was agreeable. I placed 2 sutures and wrapped around nephrostomy tube to anchor end. This was 4-0 Prolene. We then applied a Tegaderm to this area reinforced. She was given precautions and told follow-up with her surgeon. Vital Signs: Vital signs: Vital Signs Temperature 98.1 F 11/05/22 10:46 Pulse Rate 73 11/05/22 10:46 Respiratory Rate 18 11/05/22 10:46 Blood Pressure 146/83 11/05/22 10:46 Oxygen Delivery Me thod 11/05/22 10:46 MDM - General Adult Medical Decision Making Left-sided nephrostomy tube has broken stitches and starting to pull out Discharge Plan Discharge Patient Disposition: Home Clinical Impression: Displacement of nephrostomy tube Condition: Stable Prescriptions: No Action ibuprofen [Advil] 200 mg tablet 200 mg PO Q6H PRN (Reason: Pain) mirtazapine 7.5 mg tablet 7.5 mg PO BEDTIME sulfamethoxazole-trimethoprim 800-160 mg tablet 1 tab PO BID Qty: 28 2RF Percocet 5-325 mg tablet 1 tab PO Q4H 7 Days Qty: 42 0RF Discharge Orders: Discharge ED (Routine); Ordered 11/05/22 Ordered By: Joby Gibson Referrals: Saul Ram DO [Primary Care Provider] - Discharge Diet: Usual diet Discharge Activity: Limit activity as instructed Patient Instructions: Opioid Safety, Pain Management Activity Restrictions/Additional Instructions: 1. Call the physician and place a nephrostomy tube to discuss further management. Return here if other issues arise. Coding Level of Care Code ED Chief Risk Officer for Sal Fwd Exam Expanded Problem Focused
== END 2022-11-05 12:20 | disposition home or self-care (01) ==
PROVIDERS: Emergency Provider Family Medicine; PCP Internal Medicine
DX: N99.528 Other complication of incontinent external stoma of urinary tract (principal)
CPT/HCPCS: 99282

== ENCOUNTER → 2022-11-08 10:30 | Outpatient (BNVA) | payer BC, MEDICAID, SELFPAY | PROVIDERS: PCP Internal Medicine; Visit Provider Obstetrics & Gynecology | DX: R39.9 Unspecified symptoms and signs involving the genitourinary system (principal) | CPT/HCPCS: 81000; 87086 ==

== ENCOUNTER 2023-01-25 06:59 | Emergency (ER) | payer BC, MEDICAID, SELFPAY ==
--- NOTE | 2023-01-25 07:06 | XR_ITS ---
WS: [id number] Portable AP upright chest, 01/25/2023 Clinical Data: dyspnea/cough Comparison: Two-view chest, 10/17/2017 Findings: No nodules, masses or effusions are seen. The heart is normal. The pulmonary vascularity is not increased. No pneumonia or pneumothorax is seen. XR/XR chest 1V portable [id number] Impression: Negative chest.
--- NOTE | 2023-01-25 07:07 | ED_ITS ---
HPI - Abdominal Pain General: Chief Complaint: Abdominal Pain Stated Complaint: post surgery abd pain Time Seen by Provider: 01/25/23 07:06 Source: patient Mode of arrival: ambulatory History of Present Illness: 42-year-old female presents emergency room with complaint of abdominal pain. Patient had previously had a left ureteral injury associated with a abdominal hysterectomy. Subsequently she is ureteral reconstruction. 2 days after the reconstruction she had increase in pain on the right lower quadrant near one of the incision sites. This continued since then. She has tried several medications with no relief. She not had any dysuria urgency or frequency or hematuria. Pain is even encouraged by it light touch or even the pressure of a blanket while she is lying in bed MD elicited complaint: abdominal pain Pertinent past history: other (Previous hysterectomy with ureteral injury requiring percutaneous nephrostomy tube placement) Onset (ago): week(s) Pain Consistency: intermittent Location: RLQ Severity: moderate Quality: cramping Radiation: none Associated Symptoms: Reports nausea; Denies anorexia, belching, bloating, change in bowel habits, change in stool character, chills, coffee ground emesis, constipation, GI cramping, diarrhea, dyspepsia, dysuria, excessive flatus, fever(s), heartburn, hematochezia, hematuria, hematemesis, fecal incontinence, loose stools, melena, poor appetite, syncope and vomiting Review of Systems Const: Denies: fever(s) or chills Card: Denies: syncope GI: Reports: abdominal pain and nausea; Denies: vomiting, hematemesis, coffee ground emesis, heartburn, diarrhea, constipation, bloating, GI cramping, belching, excessive flatus, fecal incontinence, change in bowel habits, change in stool character, hematochezia or melena : Denies: dysuria, urinary frequency, urinary urgency or hematuria PFSH ED PFSH: Medical History Abnormal uterine bleeding (AUB) Epilepsy Diagnosed at the age of 3. Has been on medication in the past but not currently. Last seizure was in 2020. She follows up with neurology Dr. Olu Martínez Reports having migraines without auras since about 2016 and this is managed by her primary care provider. Surgical History S/P section x 2 2002, 2006 S/P cholecystectomy Laparoscopic procedure in 2016 Status post abdominal hysterectomy Status post right foot surgery Arch removal---2019--right patellar fascia surgery Status post tubal ligation 2006 at time of second Family History Father Heart disease Hypertension Stroke Mother Hypertension Thyroid condition Denies family history of Colon cancer Ovarian cancer Diabetes Hyperlipidemia Breast cancer Uterine cancer Physical Exam Const: COMMON NORMALS: no acute distress GENERAL APPEARANCE: cooperative and comfortable ORIENTATION/CONSCIOUSNESS: Yes awake, Yes oriented to person, Yes oriented to place and Yes oriented to time HENMT: COMMON NORMALS: normocephalic, atraumatic and hearing grossly normal bilaterally HEAD & SCALP: normocephalic and atraumatic Resp: COMMON NORMALS: normal respiratory effort, No retractions, No use of accessory muscles and clear to auscultation bilaterally AUSCULTATION: clear to auscultation bilaterally Cardio: COMMON NORMALS: regular rate, regular rhythm and No murmurs present (Cardio) RATE: regular rate RHYTHM: regular rhythm GI: COMMON NORMALS: No hepatosplenomegaly present AUSCULTATION: Yes normoactive bowel sounds PALPATION: Yes Tenderness to palpation present (GI) (Tenderness in the right lower quadrant with light touch on the abdominal wa), No Guarding due to palpation present (GI) and Yes No hepatosplenomegaly present Extremity: COMMON NORMALS: normal to inspection, capillary refill normal, no clubbing, cyanosis or edema, no calf tenderness and no pedal edema Neuro: SENSORIUM/ORIENTATION: Yes oriented to person, Yes oriented to place and Yes oriented to time Skin: COMMON NORMALS: no rashes or lesions noted GENERAL SKIN EXAM: no rashes or lesions noted Course Vital Signs: Vital signs: Vital Signs Temperature 97.9 F 01/25/23 07:11 Pulse Rate 104 H 01/25/23 07:11 Respiratory Rate 14 01/25/23 09:06 Blood Pressure 152/79 01/25/23 07:11 Pulse Oximetry 98 01/25/23 09:06 Oxygen Delivery Me thod Room Air 01/25/23 07:11 MDM - Abdominal Pain Medical Decision Making Patient has an incidental finding of cystitis she also has a right ovarian cyst. I believe her pain is coming mostly from abdominal wall pain however with light touch she can elicit and reproduce the pain in that area near the one of the incisions. There is no redness no erythema no injection. CT did not show anything in the abdominal wall no hematoma. Its possible its neuropathy from the incision itself. There is no sign of zoster. We will set her up for an outpatient ultrasound. Also started on antibiotics gave her pain medications to use for the discomfort and have her follow-up with the surgeon who did her original ureter reconstruction. Medical Records I reviewed the patient's medical records. Lab Data I reviewed the patient's lab results. 01/25/23 08:19 01/25/23 08:19 Labs/Radiology: Radiology Impressions Chest X-Ray 01/25/23 07:06 Impression: Negative chest. Abdomen/Pelvis CT 01/25/23 07:20 IMPRESSION: 1. Normal appendix. 2. Thick wall cyst in the RIGHT adnexa measures 4.2 x 3.8 cm. Consider follow- up of a evaluation by transvaginal pelvic ultrasound. 3. LEFT ureteral stent. 4. There is soft tissue thickening involving the distal LEFT ureter near the UV junction with elevation of the LEFT urinary bladder. This all may be due to scarring and fibrosis. This area should be evaluated by cystoscopy for underlying neoplasm. Thickening of the bladder wall and distal ureter. Tere luation by urology recommended. Laboratory Results WBC 4.1 10^3/uL (4.0-10.0) 01/25/23 08:19 RBC 4.94 10^6/uL (4.1-5.3) 01/25/23 08:19 Hgb 13.3 g/dL (11.5-15.3) 01/25/23 08:19 Hct 40.7 % (37.0-47.0) 01/25/23 08:19 MCV 82.4 fl (81-99) 01/25/23 08:19 MCH 26.9 pg (28.0-34.0) L 01/25/23 08:19 MCHC 32.7 g/dL (30.0-36.0) 01/25/23 08:19 RDW 16.3 % (12.1-15.1) H 01/25/23 08:19 Plt Count 367 10^3/cmm (130-400) 01/25/23 08:19 MPV 10.5 fL (7.4-10.4) H 01/25/23 08:19 Neut % (Auto) 55.6 % 01/25/23 08:19 Lymph % (Auto) 34.6 % 01/25/23 08:19 [place] % (Auto) 7.4 % 01/25/23 08:19 Eos % (Auto) 1.2 % 01/25/23 08:19 Baso % (Auto) 1.2 % 01/25/23 08:19 Neut # (Auto) 2.27 10^3/uL (1.8-7.7) 01/25/23 08:19 Lymph # (Auto) 1.4 10^3/uL (0.8-4.8) 01/25/23 08:19 [place] # (Auto) 0.3 10^3/uL (0.2-0.9) 01/25/23 08:19 Eos # (Auto) 0.1 10^3/uL (0.0-0.8) 01/25/23 08:19 Baso # (Auto) 0.1 10^3/uL (0.0-0.1) 01/25/23 08:19 Nucleated RBC % (auto) 0 % 01/25/23 08:19 Nucleated RBCs # 0.0 /100WBC 01/25/23 08:19 Sodium 134 mmol/L (136-145) L 01/25/23 08:19 Potassium 4.0 mmol/L (3.5-5.1) 01/25/23 08:19 Chloride 102 mmol/L (98-107) 01/25/23 08:19 Carbon Dioxide 21 mmol/L (22-29) L 01/25/23 08:19 Anion Gap 15.0 (5-19) 01/25/23 08:19 BUN 7 mg/dL (6-20) 01/25/23 08:19 Creatinine 0.7 mg/dL (0.5-0.9) 01/25/23 08:19 GFR Calculation 91.8 mL/min (90-130) 01/25/23 08:19 Glucose 92 mg/dL (65-115) 01/25/23 08:19 Calculated Osmolality 276 mOsm/kg (285-295) L 01/25/23 08:19 Calcium 9.1 mg/dL (8.5-10.5) 01/25/23 08:19 Total Bilirubin 0.3 mg/dL (0.15-1.2) 01/25/23 08:19 AST 13 U/L (0-32) 01/25/23 08:19 ALT 13 U/L (0-33) 01/25/23 08:19 Alkaline Phosphatase 114 U/L (35-105) H 01/25/23 08:19 Total Protein 6.9 g/dL (6.6-8.7) 01/25/23 08:19 Albumin 3.8 g/dL (3.5-5.2) 01/25/23 08:19 Globulin 3.1 g/dL (1.3-4.6) 01/25/23 08:19 Urine Color Yellow (Yellow) 01/25/23 07:30 Urine Appearance Cloudy (CLEAR) A 01/25/23 07:30 Urine pH 5 (5-7) 01/25/23 07:30 Ur Specific [place] 1.020 (1.005-1.030) 01/25/23 07:30 Urine Protein Neg (Negative) 01/25/23 07:30 Urine Glucose (UA) Norm (Normal) 01/25/23 07:30 Urine Ketones Negative (Negative) 01/25/23 07:30 Urine Blood 2+ (Negative) H 01/25/23 07:30 Urine Nitrate Negative (Negative) 01/25/23 07:30 Urine Bilirubin Neg (Negative) 01/25/23 07:30 Urine Urobilinogen Norm mg/dL (Negative) 01/25/23 07:30 Ur Leukocyte Esterase 2+ (Negative) H 01/25/23 07:30 Urine RBC 0-4 /hpf (0-2) H 01/25/23 07:30 Urine WBC 40-55 /hpf (0-5) H 01/25/23 07:30 Ur Squamous Epith Cells 5-10 /hpf (0-5) H 01/25/23 07:30 Amorphous Sediment Not Reportable 01/25/23 07:30 Urine Bacteria 1+ /hpf (NONE) H 01/25/23 07:30 Discharge Plan Discharge Patient Disposition: Home Clinical Impression: Abdominal wall pain in right lower quadrant, Cyst of right ovary Condition: Stable Prescriptions: New hydrocodone-acetaminophen 5-325 mg tablet 1 tab PO Q6H PRN (Reason: pain) Qty: 20 0RF nitrofurantoin macrocrystal 100 mg capsule 100 mg PO BID 7 Days Qty: 14 0RF Rx Instructions: must administer with a meal/food No Action ibuprofen [Advil] 200 mg tablet 200 mg PO Q6H PRN (Reason: Pain) mirtazapine 7.5 mg tablet 7.5 mg PO BEDTIME cyclobenzaprine 10 mg tablet 10 mg PO TID PRN (Reason: muscle spasm) Qty: 20 0RF sulfamethoxazole-trimethoprim 800-160 mg tablet 1 tab PO BID Qty: 28 2RF doxycycline hyclate 100 mg capsule 100 mg PO BID Qty: 180 0RF Percocet 5-325 mg tablet 1 tab PO Q4H 14 Days Qty: 84 0RF oxycodone-acetaminophen [Percocet] 5-325 mg tablet 1 tab PO Q6H PRN (Reason: Postoperative pain) 5 Days Qty: 20 0RF Discharge Orders: Discharge ED (Routine); Ordered 01/25/23 Ordered By: Greg Lopez Referrals: Saul Ram DO [Primary Care Provider] - Discharge Diet: Usual diet Discharge Activity: Increase activity as tolerated Patient Instructions: Abdominal Pain (ED), Opioid Safety, Pain Management Activity Restrictions/Additional Instructions: Thank you for choosing [facility] for your healthcare needs today. Please realize this is an emergency room and that we are providing you with a medical screening exam and this may not be complete and all inclusive of all the testing and or work up that you may need to determine your ailment or severity of your illness. It is very important that you follow up as instructed or that you return to the Emergency Department should you have concerns or if your condition changes or worsens in any way. You were seen today for right lower flank pain. On your exam it appears to be more abdominal wall pain. Incidental findings of a bladder infection which you are given antibiotics for and a right ovarian cyst which we will schedule an outpatient ultrasound of the pelvis to further evaluate. Did discuss your case with Dr. Abraham recommend you continue to try to contact physician group that did the ureteral reconstruction. 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
[2023-01-25 07:11] VITALS: BP 152/79; PULSE 104; RESP 18; TEMP 36.6; O2SAT 97; BMI 27.3
--- NOTE | 2023-01-25 07:20 | CT_ITS ---
WS: [id number] CT ABDOMEN AND PELVIS WITH CONTRAST HISTORY: RIGHT lower quadrant pain. TECHNIQUE: Imaging performed of the abdomen and pelvis with IV contrast. Single phase imaging of the abdomen. Coronal and sagittal reformats are submitted. All CT scans at [facility] use at [address] one of these dose optimization techniques: automated exposure control; mA and/or kV adjustment per patient size (includes targeted exams where dose is matched to clinical indication); or iterative re construction. IV CONTRAST: Omnipaque 350; 100 mL IV. Oral contrast: No DLP: 438.24 mGy.cm COMPARISON: 10/04/2022 Lower thorax: Lung bases are clear. Heart is normal size. Small hiatal hernia. Liver/biliary system: Normal size liver with no bile duct dilatation. Hepatic steatosis along the fal ciform ligament. Normal portal vein. Gallbladder: Status post cholecystectomy. Pancreas: Mild fatty replacement. Fatty replacement is most prominent around the pancreatic head. Spleen: Normal size spleen. No mass or infarct. Adrenal glands: Normal. Right kidney: Normal. Left kidney: Normal size kidney. LEFT ureteral stent is in position. No hydronephrosis. There is mild thickening around the LEFT ureter with increased soft tissue thickening around the distal ureter. Th ere is mild elevation of the LEFT lateral urinary bladder which may be due to fibrosis and scarring. Aorta: Mild atherosclerosis with no aneurysm. Lymphadenopathy: None. Free fluid: None. GI tract: Nondistended stomach. No small bowel obstruction. Very mild fluid dilatation of the distal small bowel. Normal appendix. No colon obstruction or diverticulitis. Abdominal wall: Unremarkable abdominal wall. No hernia. Pelvis: Well-rounded cystic mass with enhancing wall in the RIGHT adnexa measures 4.2 x 3.8 cm. This is contiguous with the ovarian suspension ligament and most consistent with a cyst. Bones: Unremarkable. CT/CT abdomen pelvis w con* [id number] IMPRESSION: 1. Normal appendix. 2. Thick wall cyst in the RIGHT adnexa measures 4.2 x 3.8 cm. Consider follow- up of a evaluation by transvaginal pelvic ultrasound. 3. LEFT ureteral stent. 4. There is soft tissue thickening involving the distal LEFT ureter near the U V junction with elevation of the LEFT urinary bladder. This all may be due to s carring and fibrosis. This area should be evaluated by cystoscopy for underlyin g neoplasm. Thickening of the bladder wall and distal ureter. Evaluation by uro logy recommended.
[2023-01-25 08:32] LABS: Basophils # 0.1 10^3/uL (0.0-0.1); Basophils % 1.2 %; Eosinophils # 0.1 10^3/uL (0.0-0.8); Eosinophils % 1.2 %; Hematocrit 40.7 % (37.0-47.0); Hemoglobin 13.3 g/dL (11.5-15.3); Lymphocytes # 1.4 10^3/uL (0.8-4.8); Lymphocytes % 34.6 %; Mean Corpuscular HGB Conc 32.7 g/dL (30.0-36.0); Mean Corpuscular Hemoglobin 26.9 pg (28.0-34.0); Mean Corpuscular Volume 82.4 fl (81-99); Mean Platelet Volume 10.5 fL (7.4-10.4); Monocytes # 0.3 10^3/uL (0.2-0.9); Monocytes % 7.4 %; Neutrophils # 2.27 10^3/uL (1.8-7.7); Neutrophils % 55.6 %; Nucleated Red Blood Cells % 0 %; Platelet Count 367 10^3/cmm (130-400); Red Blood Count 4.94 10^6/uL (4.1-5.3); Red Cell Distribution Width 16.3 % (12.1-15.1); White Blood Count 4.1 10^3/uL (4.0-10.0)
[2023-01-25 08:37] LABS: Bilirubin Urine Neg (Negative); Blood Urine 2+ (Negative); Glucose Urine UA Norm (Normal); Ketones Urine Negative (Negative); Leukocyte Esterase Urine 2+ (Negative); Nitrate Urine Negative (Negative); Protein Urine Neg (Negative); Urine Appearance Cloudy (CLEAR); Urine Color Yellow (Yellow); Urobilinogen Urine Norm (Negative); pH Urine 5 (5-7)
[2023-01-25 08:38] LABS: Add Urine Culture? Yes; Add Urine Microscopic? YES; Bacteria Urine 1+ /hpf; RBC Urine 0-4 /hpf (0-2); WBC Urine 40-55 /hpf (0-5)
[2023-01-25 08:52] LABS: Alanine Aminotransferase 13 U/L (0-33); Albumin Level 3.8 g/dL (3.5-5.2); Alkaline Phosphatase 114 U/L (35-105); Aspartate Amino Transferase 13 U/L (0-32); Blood Urea Nitrogen 7 mg/dL (6-20); Calcium 9.1 mg/dL (8.5-10.5); Carbon Dioxide 21 mmol/L (22-29); Chloride 102 mmol/L (98-107); Globulin 3.1 g/dL (1.3-4.6); Glomerular Filtration Rate 91.8 mL/min (90-130); Glucose 92 mg/dL (65-115); Osmolality Calculated 276 mOsm/kg (285-295); Sodium 134 mmol/L (136-145); Total Bilirubin 0.3 mg/dL (0.15-1.2); Total Protein 6.9 g/dL (6.6-8.7)
[2023-01-25] MEDS: sodium chloride 0.9% 1,000 ML 999 ML IV (09:00)
[2023-01-25] MEDS: cefTRIAXone 1,000 MG in sodium chloride 0.9% (plus) 50 ML 100 MG IV (09:02)
[2023-01-25 09:06] VITALS: RESP 14; O2SAT 98
[2023-01-25] MEDS: ondansetron 2 mg/ML SDV 2 mL 4 MG IVP (09:06)
[2023-01-25] MEDS: morphine 4 mg/mL SDV 1 mL IVP (09:06)
[2023-01-25] MEDS: iohexol 350 mg/mL 500 mL Btl (per mL) IV (09:29)
== END 2023-01-25 10:58 | disposition home or self-care (01) ==
PROVIDERS: Emergency Provider Family Medicine; PCP Internal Medicine
DX: R10.31 Right lower quadrant pain (principal); N83.201 Unspecified ovarian cyst, right side
CPT/HCPCS: 36415; 71045; 74177; 80053; 81001; 85025; 87040; 87086; 96361; 96365; 96375; 99284; J0696; J2270; J2405; J7030; Q9967

== ENCOUNTER 2023-02-21 16:06 | Emergency (ER) | payer BC, MEDICAID, SELFPAY ==
[2023-02-21 16:30] VITALS: BP 150/87; PULSE 100; TEMP 36.6; O2SAT 100; BMI 26.4
[2023-02-21 17:03] LABS: Add Urine Microscopic? YES; Bilirubin Urine Neg (Negative); Blood Urine 3+ (Negative); Glucose Urine UA Norm (Normal); Ketones Urine Negative (Negative); Leukocyte Esterase Urine Negative (Negative); Nitrate Urine Negative (Negative); Protein Urine Neg (Negative); Urine Appearance Clear (CLEAR); Urine Color Straw (Yellow); Urobilinogen Urine Norm (Negative); pH Urine 5 (5-7)
[2023-02-21 17:04] LABS: Add Urine Culture? No; Bacteria Urine TRACE /hpf; RBC Urine 0-4 /hpf (0-2)
== END 2023-02-21 19:57 | disposition left against medical advice (07) ==
PROVIDERS: Emergency Medicine; Emergency Provider Family Medicine; PCP Internal Medicine
DX: Z53.21 Procedure and treatment not carried out due to patient leaving prior to being seen by health care provider (principal)
CPT/HCPCS: 81001

== ENCOUNTER 2024-09-19 06:39 | Emergency (ER) | payer MEDICAID, SELFPAY ==
[2024-09-19 06:59] VITALS: BP 156/80; PULSE 67; RESP 18; TEMP 36.8; O2SAT 100; BMI 24.4
[2024-09-19] MEDS: tetanus-dipt-pertussis 0.5 mL SDV IM (07:12)
--- NOTE | 2024-09-19 07:39 | W.ED.WOUNDLC ---
HPI - Wound/Laceration General: Chief Complaint: Wound/Laceration Stated Complaint: cut on left hand Time Seen by Provider: 09/19/24 06:41 History of Present Illness: 44-year-old female presents to the emergency room with complaints Laceration to her left index finger. She was doing some cutting this morning and cut the lateral portion of the finger at the tip. She has about a 1 cm avulsion type laceration with a skin flap. She applied direct pressure there is no gaping and no drainage from the wound. Uncertain of last tetanus Related Data Home Medications Medication Instructions Recorded Confirmed ibuprofen 200 mg tablet (Advil) 200 mg PO Q6H PRN Pain 11/27/19 09/19/24 Allergies Allergy/AdvReac Type Severity Reaction Status Date / Time sumatriptan [From Imitrex] Allergy anaphylaxis Verified 09/19/24 07:05 ketorolac [From Toradol] AdvReac ADR-Itching Verified 09/19/24 07:05 [facility] ED PFSH: Medical History Abnormal uterine bleeding (AUB) Epilepsy Diagnosed at the age of 3. Has been on medication in the past but not currently. Last seizure was in 2020. She follows up with neurology Dr. Olu Martínez Reports having migraines without auras since about 2015 and this is managed by her primary care provider. Surgical History Status post abdominal hysterectomy Status post tubal ligation 2006 at time of second S/P section x 2 2002, 2006 S/P cholecystectomy Laparoscopic procedure in 2016 Status post right foot surgery Arch removal---2019--right patellar fascia surgery Family History Father Heart disease Hypertension Stroke Mother Hypertension Thyroid disease Denies family history of Colon cancer Ovarian cancer Diabetes Hyperlipidemia Breast cancer Uterine cancer Social History Substance/Drug Use: never Physical Exam Extremity: OTHER: 1 cm avulsion laceration semicircular. Flap appears to have good vascularity no gaping no active bleeding Course Vital Signs: Vital signs: Vital Signs Temperature 98.3 F 09/19/24 06:59 Pulse Rate 55 L 09/19/24 08:18 Respiratory Rate 18 09/19/24 06:59 Blood Pressure 164/91 09/19/24 08:18 Pulse Oximetry 100 09/19/24 08:18 MDM - Wound/Laceration Medical Decision Making Offered patient option of suturing versus just applying Dermabond and then applying a cyanoacrylate glue to keep it closed for the next several days. Suspect that applying sutures will being extremely uncomfortable probably increased pain with throbbing and actually may strangle the skin flap and decrease the chance of it to surviving. Patient prefers the Dermabond applied Dermabond wound care instructions given follow-up as needed No radiology studies performed this visit Discharge Plan Discharge Patient Disposition: Home Clinical Impression: Finger laceration Condition: Stable Prescriptions: No Action ibuprofen [Advil] 200 mg tablet 200 mg PO Q6H PRN (Reason: Pain) Discharge Orders: Discharge ED (Routine); Ordered 09/19/24 Ordered By: Greg Lopez Referrals: Saul Ram, [Primary Care Provider] - Discharge Diet: Usual diet Discharge Activity: Resume usual activity Patient Instructions: Laceration (ED), Opioid Safety, Pain Management Activity Restrictions/Additional Instructions: Thank you for choosing [facility] for your healthcare needs today. It is very important that you follow up as instructed or that you return to the Emergency Department should you have concerns or if your condition changes or worsens in any way. You are seen today for a laceration. Laceration was closed with Dermabond. You can reinforce with an [id number] cyanoacrylate glue as needed for the next several days. Follow-up with primary care doctor if does not continue to improve Coding Level of Care Code ED [facility] Specialist for [employer]
[2024-09-19] MEDS: HYDROcodone-acetaminophen 5-325 mg Tablet 1 TAB PO (08:16)
[2024-09-19 08:18] VITALS: BP 164/91; PULSE 55; O2SAT 100
== END 2024-09-19 08:19 | disposition home or self-care (01) ==
PROVIDERS: Emergency Provider Family Medicine; PCP Internal Medicine
DX: S61.211A Laceration without foreign body of left index finger without damage to nail, initial encounter (principal); X58.XXXA Exposure to other specified factors, initial encounter
CPT/HCPCS: 90471; 90715; 99283

== ENCOUNTER 2025-09-10 02:06 | Emergency (ER) | payer SELFPAY ==
--- OUTSIDE RECORDS SUMMARY | 2025-09-10 02:14 | XMS_ITS | Data Portability ---
Author Organization EVERARDO Jacinto Amezquita [facility] Address [address] [address] Assessment No assessment recorded. Plan of Treatment Reminders Order Date Submit Date Provider Last Modified By Organization Details Last Modified Time Details Appointments None recorded. Lab None recorded. Referral None recorded. Procedures None recorded. Surgeries None recorded. Imaging None recorded. Medication Orders tramadol 50 mg tablet 2022 023 [facility] #[id number], [address], [facility], [place], [address], 3 09:30:10 trazodone 100 mg tablet 2022 023 [facility] #[id number], [address], [facility], [place], [address], 3 09:30:09 mirtazapine 45 mg tablet 2022 023 [id number], [address], [facility], [place], [address], 3 16:17:16 Patient TargetsNo targets recorded. Patient InstructionsNo instructions recorded. Reason for Referral None Reported. Results Created Date Observation Date Name Description Value Unit Range Abnormal Flag Note LastModifiedBy Organization Detail LastModifiedTime 12/22/19 23 12/21/2022 urina lysis , compl ete nit positi ve abnormal Not Available [facility] [address] [place], [place], [address], 05/08/2023 14:52:52 12/22/19 23 12/21/2022 urina lysis , compl ete ket negati ve negative Not Available [facility] [address] [facility], [place], [address], 05/08/2023 14:52:52 12/22/19 23 12/21/2022 urina lysis , compl ete WBC >100 packed abnormal Not Available [facility] [address] [facility], [place], [address], 05/08/2023 14:52:52 12/22/19 23 12/21/2022 urina lysis , compl ete blo 3+ abnormal Not Available [facility] [address] [facility], [place], [address], 05/08/2023 14:52:52 12/22/1912/21/2022 urina lysis , compl ete S.g 1.030 1.005- 1.025 abnormal Not Available [facility] [address] [facility], [place], [address], 05/08/2023 14:52:52 12/22/1912/21/2022 urina lysis , compl ete kalina 2+ abnormal Not Available [facility] [address] [facility], [place], [address], 05/08/2023 14:52:52 12/22/1912/21/2022 urina lysis , compl ete pro 1+ abnormal Not Available [facility] [address] [facility], [place], [address], 05/08/2023 14:52:52 12/22/19 23 12/21/2022 urina lysis , compl ete uro 0.2 negative Not Available [facility] [address], [place], [address], 05/08/2023 14:52:52 12/22/19 23 12/21/2022 urina lysis , compl ete color yellow negative Not Available [facility] [address], [place], [address], 05/08/2023 14:52:52 12/22/19 23 12/21/2022 urina lysis , compl ete epi cells negati ve negative Not Available [facility] [address], [place], [address], 05/08/2023 14:52:52 12/22/19 23 12/21/2022 urina lysis , compl ete other NG negative Not Available [facility] [address], [place], [address], 05/08/2023 14:52:52 12/22/19 23 12/21/2022 urina lysis , compl ete pH 6.0 5.0-7. 0 negative Not Available [facility] [address], [place], [address], 05/08/2023 14:52:52 12/22/19 23 12/21/2022 urina lysis , compl ete bacteria negati ve negative Not Available [facility] [address], [place], [address], 05/08/2023 14:52:52 12/22/19 23 12/21/2022 urina lysis , compl ete clarity slight y cloudy negative Not Available [facility] [address], [place], [address], 05/08/2023 14:52:52 12/22/19 23 12/21/2022 urina lysis , compl ete RBC negati ve negative Not Available [facility] [address], [place], [address], 05/08/2023 14:52:52 12/22/19 23 12/21/2022 urina lysis , compl ete bili negati ve negative Not Available [facility] [address], [place], [address], 05/08/2023 14:52:52 12/22/19 23 12/21/2022 urina lysis , compl ete glu negati ve negative Not Available [facility] [address] [facility], [place], [address], 05/08/2023 14:52:52 12/22/19 23 12/21/2022 CBC w/ auto diff MCH 29.0 pg 27.0-3 2.0 negative Not Available [facility] [address] [facility], [place], [address], 05/08/2023 14:51:50 12/22/19 23 12/21/2022 CBC w/ auto diff MCV 85.7 fL 80.0-9 9.9 negative Not Available [facility] [address] [facility], [place], [address], 05/08/2023 14:51:50 12/22/19 23 12/21/2022 CBC w/ auto diff granulcytes# 5.3 3_/uL negative Not Available [facility] [address] [facility], [place], [address], 05/08/2023 14:51:50 12/22/19 23 12/21/2022 CBC w/ auto diff granulcytes % 74.0 % 30.0-7 0.0 abnormal Not Available [facility] [address] [facility], [place], [address], 05/08/2023 14:51:50 12/22/19 23 12/21/2022 CBC w/ auto diff monocytes % 6.7 % 2.0-10 .0 negative Not Available [facility] [address] [facility], [place], [address], 05/08/2023 14:51:50 12/22/19 23 12/21/2022 CBC w/ auto diff monocytes # 0.5 3_/uL negative Not Available [facility] [address] [facility], [place], [address], 05/08/2023 14:51:50 12/22/19 23 12/21/2022 CBC w/ auto diff HGB 13.7 g/dL 12.0-1 6.0 negative Not Available [facility] [address] [facility], [place], [address], 05/08/2023 14:51:50 12/22/19 23 12/21/2022 CBC w/ auto diff plt 386.0 3_/uL 140.0- 451.0 negative Not Available [facility] [address] [facility], [place], [address], 05/08/2023 14:51:50 12/22/19 23 12/21/2022 CBC w/ auto diff WBC 7.1 3_/uL 4.0-10 .5 negative Not Available [facility] [address] [facility], [place], [address], 05/08/2023 14:51:50 12/22/19 23 12/21/2022 CBC w/ auto diff MCHC 33.9 g/dL 32.0-3 6.0 negative Not Available [facility] [address] [facility], [place], [address], 05/08/2023 14:51:50 12/22/19 23 12/21/2022 CBC w/ auto diff RDW 15.6 % 11.5-1 4.6 abnormal Not Available [facility] [address] [facility], [place], [address], 05/08/2023 14:51:50 12/22/19 23 12/21/2022 CBC w/ auto diff lymphocytes # 1.3 3_/uL negative Not Available [facility] [address] [facility], [place], [address], 05/08/2023 14:51:50 12/22/19 23 12/21/2022 CBC w/ auto diff lymphocytes % 17.8 % 20.0-5 0.0 abnormal Not Available [facility] [address], [place], [address], 05/08/2023 14:51:50 12/22/19 23 12/21/2022 CBC w/ auto diff HCT 40.3 % 37.0-4 7.0 negative Not Available [facility] [address] [facility], [place], [address], 05/08/2023 14:51:50 12/22/19 23 12/21/2022 CBC w/ auto diff RBC 4.70 6_/uL 3.50-5 .50 negative Not Available [facility] [address] [facility], [place], [address], 05/08/2023 14:51:50 12/22/19 23 12/21/2022 CMP, serum or plasm a AST (SGOT) 17.0 U/L 0.0-46 .0 negative Not Available [facility] [address] [facility], [place], [address], 05/08/2023 14:51:49 12/22/19 23 12/21/2022 CMP, serum or plasm a BUN (blood urea nitrogen) 6.0 mg/dL 10.0-2 6.0 abnormal Not Available [facility] [address] [facility], [place], [address], 05/08/2023 14:51:49 12/22/19 23 12/21/2022 CMP, serum or plasm a chloride 107.0 mmol/ L 98.0-1 10.0 negative Not Available [facility] [address] [facility], [place], [address], 05/08/2023 14:51:49 12/22/1912/21/2022 CMP, serum or plasm a creatinine (serum) 0.7 mg/dL 0.4-1. 5 negative Not Available [facility] [address] [facility], [place], [address], 05/08/2023 14:51:49 12/22/19 23 12/21/2022 CMP, serum or plasm a eGFR calculated 97.5 negative Not Available [facility] [address], [place], [address], 05/08/2023 14:51:49 12/22/19 23 12/21/2022 CMP, serum or plasm a ALP phos 144.0 U/L 30.0-1 40.0 abnormal Not Available [facility] [address], [place], [address], 05/08/2023 14:51:49 12/22/19 23 12/21/2022 CMP, serum or plasm a calcium 9.3 mg/dL 8.4-10 .5 negative Not Available [facility] [address], [place], [address], 05/08/2023 14:51:49 12/22/19 23 12/21/2022 CMP, serum or plasm a C02 22.0 mmol/ L 22.0-3 1.0 negative Not Available [facility] [address], [place], [address], 05/08/2023 14:51:49 12/22/19 23 12/21/2022 CMP, serum or plasm a glucose 107.0 mg/dL 60.0-9 9.0 abnormal Not Available [facility] [address], [place], [address], 05/08/2023 14:51:49 12/22/19 23 12/21/2022 CMP, serum or plasm a potassium 3.8 mmol/ L 3.5-5. 1 negative Not Available [facility] [address], [place], [address], 05/08/2023 14:51:49 12/22/19 23 12/21/2022 CMP, serum or plasm a total protein 7.5 g/dL 6.0-8. 5 negative Not Available [facility] [address], [place], [address], 05/08/2023 14:51:49 12/22/19 23 12/21/2022 CMP, serum or plasm a sodium 133.0 mmol/ L 136.0- 145.0 abnormal Not Available [facility] [address] [facility], [place], [address], 05/08/2023 14:51:49 12/22/19 23 12/21/2022 CMP, serum or plasm a albumin 4.1 g/dL 3.5-5. 5 negative Not Available [facility] [address] [facility], [place], [address], 05/08/2023 14:51:49 12/22/19 23 12/21/2022 CMP, serum or plasm a altv (SGPT) 16.0 U/L 13.0-6 9.0 negative Not Available [facility] [address] [facility], [place], [address], 05/08/2023 14:51:49 12/22/19 23 12/21/2022 CMP, serum or plasm a BUN/creatini ne ratio 8.57 ratio negative Not Available [facility] [address] [facility], [place], [address], 05/08/2023 14:51:49 12/22/19 23 12/21/2022 CMP, serum or plasm a osmolality 273.4 calc negative Not Available [facility] [address] [facility], [place], [address], 05/08/2023 14:51:49 12/22/19 23 12/21/2022 CMP, serum or plasm a anion gap 4.0 calc negative Not Available [facility] [address] [facility], [place], [address], 05/08/2023 14:51:49 12/22/19 23 12/21/2022 CMP, serum or plasm a A/G ratio 1.2 ratio negative Not Available [facility] [address] [facility], [place], [address], 05/08/2023 14:51:49 12/22/1912/21/2022 CMP, serum or plasm a globulin 3.4 calc negative Not Available [facility] [address], [place], [address], 05/08/2023 14:51:49 12/22/1912/21/2022 CMP, serum or plasm a total bilirubin 0.6 mg/dL 0.2-1. 3 negative Not Available [facility] [address], [place], [address], 05/08/2023 14:51:49 12/22/1912/21/2022 TSH, 2nd Gener ation , QN, serum or plasm a TSH 0.68 uIU/m L 0.49-3 .82 negative Not Available [facility] [address], [place], [address], 05/08/2023 14:51:43 Result Notes None recorded. Problems Name Problem SNOMED Code Status Onset Date Resolution Date Notes Provider Name and Address Organization Details Recorded Time Tubal ligation done 49958143099 108 Completed 201507/13/2016 Tubal Ligation - Status is Inactive ; 07/13/20 16 3:15PM by Lyndsay Alvarez CMT, Alexx on/Adden dum; Promoted ; acuity set as *; Not Available [facility] 3 03:10:40 section Completed 201507/13/2016 C-sectio n, 2002 and 2007 - Status is Inactive ; 07/13/20 16 3:15PM by Lyndsay Alvarez CMT, Kellyati on/[place] dum; Promoted ; acuity set as *; Not Available [facility] 3 03:10:40 Migraine 02187312 Completed 201507/13/2016 Migraine Headache - Status is Inactive ; 07/13/20 16 3:15PM by Lyndsay Alvarez CMT, Annotati on/[place] dum; Promoted ; acuity set as *; Not Available [facility] 3 03:10:40 Tobacco dependen ce syndrome 26483294 Active 2022 CURRENT SMOKER; Recorded 10/18/19 23 1:44PM by Lissett Moore RN, Office Visit; Promoted ; acuity set as *; CURRENT SMOKER - Status is Inactive ; Recorded 12/14/19 19 7:11AM by Linda Escobedo LPN, Annotati on/Adden dum; Promoted ; acuity set as *; ; Start Date : 12/14/19 19 Not Available [facility] 3 03:10:40 Persiste nt insomnia 480013367 Active 2022 Saul Ram, [address], [address] , [facility], [facility] 3 09:28:59 Problem Notes None recorded. Medical Equipment None Reported. Allergies Allergen ID Allergen Name Allergen Category Reaction Reaction Severity Criticality Documentation Date Start Date Code Code System Note Provider Name and Address Organization Details Recorded Time 01517 Imitrex medicatio n dyspnea Not available Not available 05/07/2023 76526 3 RxNorm React ion: Short ness of breat h; Comme nt: Recor ded 10/18 1:44P M by Fay marc RN, Offic e Visit ; Promo rashawn; Yadira anand ce: *; ; Not Available [facility] 3 02:28:26 Medications Name Sig Start Date Stop Date Status Note LastModified by Organization Details LastModified Time cyclobenz aprine 10 mg tablet TAKE 1 TABLET BY MOUTH TWICE A DAY active Not Available Not Available No t Available doxycycli ne hyclate 100 mg capsule TAKE 1 CAPSULE BY MOUTH TWICE A DAY active Not Available Not Available No t Available hydrocodo ne 5 mg-acetam inophen 325 mg tablet TAKE 1 TABLET BY MOUTH EVERY 6 HOURS NEEDED FOR PAIN active Not Available Not Available No t Available ciproflox acin 500 mg tablet TAKE 1 TABLET BY MOUTH TWICE A DAY 01/05 completed Not Available Not Available Not Available sulfameth oxazole 800 mg-trimet hoprim 160 mg tablet TAKE 1 TABLET BY MOUTH TWICE A DAY 01/05 completed Not Available Not Available Not Available tramadol 50 mg tablet TAKE 1 TABLET BY MOUTH EVERY 6 HOURS active Not Available Not Available No t Available ketorolac 10 mg tablet TAKE 1 TABLET BY MOUTH THREE TIMES A DAY FOR 7 DAYS active Not Available Not Available No t Available oxycodone -acetamin ophen 5 mg-325 mg tablet TAKE 1 TABLET BY MOUTH EVERY 6 HOURS NEEDED FOR POST OP PAIN, FOR 5 DAYS active Not Available Not Available No t Available trazodone 100 mg tablet TAKE 1 TABLET BY MOUTH IN THE MORNING AND TAKE 1 TABLET AT BEDTIME active Not Available Not Available No t Available mirtazapi ne 30 mg tablet TAKE 1 TABLET BY MOUTH EVERYDAY AT BEDTIME active Not Available Not Available No t Available nitrofura ntoin macrocrys marina 100 mg capsule TAKE 1 CAPSULE BY MOUTH TWICE A DAY WITH FOOD OR A MEAL active Not Available Not Available No t Available docusate sodium 100 mg capsule TAKE 1 CAPSULE BY MOUTH TWICE A DAY active Not Available Not Available No t Available mirtazapi ne 45 mg tablet TAKE 1 TABLET BY MOUTH EVERYDAY AT BEDTIME active Not Available Not Available No t Available oxycodone 5 mg tablet TAKE 1 TABLET BY MOUTH EVERY 4 HOURS 01/05 completed Not Available Not Available Not Available topiramat e 50 mg tablet at bedtime 2020 active 1 IN AM AND [address] [place]CH; [address]; Recorded 01/05/20 22 12:06PM by Breonna Brandt (Authori zoed through Saul Ram DO), Office Visit; Refill Quantity : 30; Tablet; Not Available Not Available Not Available Cipro two times daily 2022 active Recorded 12/22/19 23 11:59AM by NICOLE Brunson, Lab Only; Refill Quantity : 0; Not Available Not Available Not Available mirtazapi ne at bedtime 2022 active restarti ng; stopping celexa; 24291; Recorded 12/21/19 23 5:03PM by Margo Maxwell (Authori zed through Kirt Holley MD), Refill Request; Refill Quantity : 90; Tablet; Not Available Not Available Not Available Trazodone at bedtime active DR CROUCH; 0; Recorded 10/18/19 23 1:44PM by Lissett Moore, RN, Office Visit; Not Available Not Available Not Available Vitals Date Recorded Body height Body mass index (BMI) Body weight Heart rate Oxygen saturation Systolic And Diastolic Provider Name and Address Organization Details Last Updated DateTime 3 154.94 cm 29.7 kg/m2 79536 g 94 /min 99 % 146/76 mm[Hg] TISHA MOORE [facility] 3 15:52:29 Date Recorded Body height Body mass index (BMI) Body weight Heart rate Respiratory rate Oxygen saturation Systolic And Diastolic Provider Name and Address Organization Details Last Updated DateTime 3 154.94 cm 27.8 kg/m2 94836.0 8 g 54 /min 18 /min 94 % 132/70 mm[Hg] TISHA MOORE [facility] 3 09:15:59 Social History Question Answer Notes LastModified by Organizat ion Details LastModified Time Tobacco Smoking Status Former Smoker TISHA MOORE [facility] 01/05/2023 15:54:05 Are You Blind Or Do You Have Difficulty Seeing? No [email or web address] Information not available 01/05/2023 Are You Deaf Or Do You Have Serious Difficulty Hearing? No [email or web address] Information not available 01/05/2023 Have You Had Direct Contact, Or Contact During Intimacy, With Monkeypox Rash, Scabs, Or Body Fluids From A Person With Monkeypox? No [email or web address] Information not available 01/05/2023 What Is Your Relationship Status? Domestic Partner [email or web address] Information not available 01/05/2023 Have You Recently Traveled Abroad? No [email or web address] Information not available 01/05/2023 Do You Have Difficulty Walking Or Climbing Stairs? No [email or web address] Information not available 01/05/2023 Sex: Unknown Functional Status Question Answer Note LastModified by Organization D etails LastModified Time Do you have difficulty doing errands alone? No [email or web address] Information not available 01/05/2023 Are you able to care for yourself independently? Yes Information not available 01/05/2023 Do you have difficulty dressing, bathing, grooming, or toileting? No [email or web address] Information not available 01/05/2023 Mental Status Question Answer Note LastModified by Organization D etails LastModified Time Do you have difficulty concentrating, remembering or making decisions? No [email or web address] Information no t available 01/05/2023 Family History Nothing Reported. Medical History No medical history recorded. Gynecological HistoryNo gynecological history recorded. Obstetrics History GPAL:G 0 P 0 0 0 0 Immunizations Vaccine Type Date Status Note Provider Nam e and Address Organization Details Recorded Time Influenza, split virus, trivalent, preservative 3 completed Not Available [facility] 05/07/2023 02:51:13 Td(adult) unspecified formulation 3 completed Not Available [facility] 05/07/2023 02:51:13 Influenza, split virus, trivalent, preservative 0 completed Not Available [facility] 05/07/2023 02:51:14 Past Encounters Encounter ID Performer Location Encounter Start Date Encounter Closed Date Diagnosis/Indication Diagnosis SNOMED-CT Code Diagnosis ICD10 Code Diagnosis IMO Codes Diagnosis Note [id number] Saul Ram DO [facility] ([facility]) [address] [place] [address] 01/05/2023 15:40:48 01/16/2023 16:18:15 Injury of left ureter 2134358964 9293037 S37.10XD likely getting urostomy removed in 2 days with possible reconstruc tion injury occurred during hysterecto my Anxiety 02413450 F41.9 struggling emotionall y with health issues increase dose Healed pyelonephritis 12 0130187 Z87.448 [id number] Saul Ram DO [facility] ([facility]) [address] [place] [address] 02/04/2023 08:40:36 02/04/2023 19:17:13 Abdominal pain 74546255 R10.9 stent removal went well, but significan t pain after surgery; short term tramadol Persistent insomnia 1919 71266 G47.09 Health Concerns Section Related Observation LastModified by Organization Detai ls LastModified Time None Recorded Concern Status LastModified by Organization Details LastModified Time None Recorded Advance Directives Directive None Recorded Payers Insurance Date Sequence Insurance Name Policy Number Policy Major Covered Member ID Major Member ID Guarantor Name 11/02/2024 1 [employer] [place]AC[place] - [place]MO) [id number] Priya Lucas [id number] Priya Lucas Notes Date Note Type Note Provider Name and Address Organization Details Recorded Time 01/05/2023 text/html FeverReported by PatientHPIFor context, patient reportsrecent surgery/procedurebut reportsno recent travel. For severity, patient reportsimproving.ROS as noted in the [facility] Saul Ram DO [address] [place] [address], [phone], [facility] 01/05/2023 16:18:57 02/04/2023 text/html Abdominal PainRe ported by PatientAbdominal PainFor quality, patient reportsaching,sharp, andtender. For location, patient reportsruq. For severity, patient reportsmoderate. For onset/timing, patient reportsacute. For associated symptoms, patient reportsno feverandno chills.ROS as noted in the [facility] Saul Ram DO [address] [place] [address], [phone], [facility] 02/04/2023 09:30:32 OBGyn Episode No OBEpisode recorded.
--- OUTSIDE RECORDS SUMMARY | 2025-09-10 02:14 | XMS_ITS | Clinical Summary ---
Author Organization [facility] Address [address] [place] [address] Phone Care Team Providers Care Supervisor Detasseling Crew Name Role Phone Saul Ram DO Primary Care Provide r Allergies Active Allergy Reactions Criticality Noted Date Comments Ketorolac Itching Low 10/08/2022 Sumatriptan Other (See Comments) High 10/08/2022 Stop breathing Medications docusate sodium (COLACE) 100 mg capsule Take 100 mg by mouth 2 times daily. Active trimethoprim-sul famethoxazole (BACTRIM;SEPTRA) 40-200 mg/5 mL Suspension Take 10 mL by mouth every 12 hours. Active oxyCODONE-acetam inophen (PERCOCET) 5-325 mg tablet Take 1 Tablet by mouth every 4 hours as needed for Pain, Moderate. Active mirtazapine (REMERON) 15 mg tablet Take 15 mg by mouth daily at bedtime. Active Social History Tobacco Use Types Packs/Day Years Used Date Smoking Tobacco: Never Assessed Comments No Sex and Gender Information Value Date Recorded Sex Assigned at Not on file Legal Sex Female 12:07 PM [employer]PER Gender Identity Not on file Sexual Orientation Not on file Last Filed Vital Signs Vital Sign Reading Time Taken Comments Blood Pressure 170/86 10/08/2022 2:25 PM PICKLER HELPER Pulse 76 10/08/2022 2:25 PM PICKLER HELPER Temperature 36.6 C (97.8 F) 10/08/2022 2:25 PM PICKLER HELPER Respiratory Rate 18 10/08/2022 2:25 PM PICKLER HELPER Oxygen Saturation 99% 10/08/2022 2:25 PM PICKLER HELPER Inhaled Oxygen Concentration - - Weight 77.1 kg (170 lb) 10/08/2022 11:04 AM PICKLER HELPER Height 152.4 cm (5') 10/08/2022 11:04 AM PICKLER HELPER Body Mass Index 33.2 10/08/2022 11:04 AM PICKLER HELPER Plan of Treatment Health Maintenance Due Date Last Done Comments DTAP/TDAP/TD VACCINES (1 - Tdap) 02/25/1999 HEPATITIS B VACCINES (1 of 3 - 19+ 3-dose series) 02/07 HPV/Cotest (21-29) 02/25/2001 HPV VACCINES (1 - 3-dose SCDM series) 02/25/2007 CERVICAL CANCER SCREENING 02/25/2010 HPV/Cotest (30-65) 02/25/2010 PAP SMEAR 02/25/2010 BREAST CANCER SCREENING 2020 COLORECTAL SCREENING 02/25/2025 Colorectal Cancer Screening 02/25/2025 FIT-DNA Q 3 years 02/25/2025 FIT/FOBT Q 1 year 02/25/2025 Flex Sig/CT Colonography Q 5 years 02/25/2025 INFLUENZA VACCINE (#1) 2025 Medical Devices Implanted Type Area [employer] G[employer] Device Identifier Shelf Expiration Date Model / Serial / Lot Flexima Nephrostomy Catheter-2021 Implanted:Qty: 1 on 10/08/2022 by Herman Linda MD Catheter Left: Kidney [id number] 06/30/2025 / / [id number] Insurance [facility] MEDICAID Care Teams Supervisor Detasseling Crew Relationship Specialty Start Date End Date Saul Ram DO [address] [place] [address] PCP - General Internal Medicine 10/08/22
[2025-09-10 02:20] VITALS: BP 120/81; PULSE 92; RESP 18; TEMP 36.7; O2SAT 99; BMI 23.4
--- NOTE | 2025-09-10 02:41 | CTR_ITS ---
PROCEDURE INFORMATION: Exam: CT Pelvis With Contrast Exam date and time: 09/10/2025 3:53 AM Age: 45 years old Clinical indication: Perianal pain; Additional info: Perianal vs perirectal abscess just superior to anus TECHNIQUE: Imaging protocol: Computed tomography of the pelvis with contrast. Radiation optimization: All CT scans at this facility use at least one of these dose optimization techniques: automated exposure control; mA and/or kV adjustment per patient size (includes targeted exams where dose is matched to clinical indication); or iterative reconstruction. Contrast material: OMNI 350; Contrast volume: 100 ml; Contrast route: INTRAVENOUS (IV); COMPARISON: CT abdomen pelvis w con* [id number] 01/25/2023 9:13 AM RADIATION DOSE METRICS: Total DLP (mGy-cm): 238.81 FINDINGS: Intestine: Visualized small and large intestine are unremarkable. Appendix: No evidence of appendicitis. Intraperitoneal space: Unremarkable. No free air. No significant fluid collection. Vasculature: No aortic aneurysm. No aortic dissection. Mild diffuse atherosclerotic disease is present. Lymph nodes: Unremarkable. No enlarged lymph nodes. Reproductive: The uterus is surgically absent. Urinary bladder: Normal. No mass. Bones/joints: Degenerative changes of the spine seen. Soft tissues: In the subcutaneous tissues of the right medial gluteal region/perirectal region, there is a rim enhancing fluid collection with surrounding phlegmonous changes, stranding of the adjacent fat, and thickening of the overlying skin. The fluid collection measures approximately 1.8 x 1[address]/CT pelvis w con* [id number] IMPRESSION: Right perianal abscess.
[2025-09-10 02:43] VITALS: BP 145/82
--- NOTE | 2025-09-10 02:53 | ED_ITS ---
HPI - Skin/Abscess/Foreign Bdy 2 General: Chief complaint: Skin/Abscess/Foreign Body Stated complaint: Bottom Problems Time Seen by Provider: 09/10/25 02:09 History of Present Illness: 45-year-[facility] 4 to 5-day history of increasingly painful area of swelling/mass just superior to her anus, no history of similar episodes in the past, no history of hemorrhoids, no bleeding, no fever, able to defecate, presented to ED tonight because pain is worsening to the point where she is having difficulty sitting. Related Data Home Medications ?Medication ?Instructions ?Recorded ?Confirmed ibuprofen 200 mg tablet (Advil) 200 mg PO Q6H PRN Pain 11/27/19 09/19/24 Previous Rx's ?Medication ?Instructions ?Recorded doxycycline monohydrate 100 mg 100 mg PO BID 10 days # 20 caps 09/10/25 capsule tramadol 25 mg tablet 25 mg PO Q4H PRN pain 3 days #14 09/10/25 tabs Allergies Allergy/AdvReac Type Severity Reaction Status Date / Time sumatriptan (From Imitrex) Allergy anaphylaxis Verified 09/19/24 07:05 ketorolac (From Toradol) AdvReac ADR-Itching Verified 09/19/24 07:05 [facility] ED 2 PFSH: Medical History Abnormal uterine bleeding (AUB) Epilepsy Diagnosed at the age of 3. Has been on medication in the past but not currently. Last seizure was in 2020. She follows up with neurology Dr. Olu Martínez Reports having migraines without auras since about 2015 and this is managed by her primary care provider. Surgical History Status post abdominal hysterectomy Status post tubal ligation 2006 at time of second S/P section x 2 2002, 2006 S/P cholecystectomy Laparoscopic procedure in 2016 Status post right foot surgery Arch removal---2019--right patellar fascia surgery Family History Father Heart disease Hypertension Stroke Mother Hypertension Thyroid disease Denies family history of Colon cancer Ovarian cancer Diabetes Hyperlipidemia Breast cancer Uterine cancer Social History Substance/Drug Use: never Physical Exam 2 Narrative: EXAM NARRATIVE: Gen: A&Ox4, no acute distress, nontoxic appearing HEENT: Normocephalic, atraumatic, no scleral icterus, external ears normal, moist mucous membranes Neck: Supple, full range of motion, no observable masses Lungs: No Respiratory distress, Lungs clear to auscultation bilaterally no rales, rhonchi, wheezing CV: Regular rate and rhythm, no murmur, no pitting edema to lower extremities bilaterally Abdomen: Soft, nondistended, nontender to palpation rectal: On examination there is a focal area of redness tenderness and swelling with induration just superior to the anus on the medial aspect of the right buttock, consistent with possible perianal abscess with measurements of approximately 3 x 2 cm Neuro: Alert and oriented, no slurred speech, sensation and strength grossly intact all 4 extremities Psych: Appropriate for situation. Procedures Abscess I/D Site: other (mamta-anal) Side (if applicable): right Sedation/analgesia: none Local Anesthetic: lidocaine 1% and with epi Amount of anesthesia used (mL): 5 Technique: incised with #11 blade Amount of fluid expressed (mL): 4 Irrigation: Yes Packing used?: none Course 2 Reevaluation(s): Reevaluation #1: CT confirming perianal abscess without rectal extension, labs reassuring, patient underwent successful incision and drainage at bedside no complications, stable for discharge on oral antibiotics with outpatient PCP follow-up, general surgery clinic appointment referral provided in case symptoms not fully resolving to consider operative debridement although I feel that this is less likely. Time: 05:10 Vital Signs: Vital signs: Vital Signs Temperature 98.0 F 09/10/25 02:20 Pulse Rate 73 09/10/25 04:28 Respiratory Rate 16 09/10/25 03:14 Blood Pressure 118/69 09/10/25 04:28 Pulse Oximetry 95 09/10/25 04:28 Oxygen Delivery Me thod Room Air 09/10/25 04:28 MDM - Skin/Abscess/Foreign Bdy Medicial Decision Making 45-year-old female presenting the emergency department with painful area of swelling just superior to her anus, physical exam suggestive of a perianal versus perirectal abscess, given lack of systemic signs of infection, pain predominantly when sitting versus with defecation, suspect perianal abscess amenable to bedside drainage however will obtain CT pelvis to assess for deep space extension or need for operative debridement, plan for pain control, reassess for disposition but anticipate bedside I&D and discharge with oral antibiotics and follow-up with general surgery. Lab Data Labs with no anemia or leukocytosis, normal creatinine 09/10/25 03:15 09/10/25 03:[address] 09/10/25 02:41 IMPRESSION: Right perianal abscess. Laboratory Results WBC 7.61 10^3/uL (3.29-11.43) 09/10/25 03:15 RBC 4.34 10^6/uL (3.85-5.65) 09/10/25 03:15 Hgb 13.10 g/dL (11.27-16.99) 09/10/25 03:15 Hct 38.6 % (36-47) 09/10/25 03:15 MCV 88.9 fl (85-98) 09/10/25 03:15 MCH 30.2 pg (27-33) 09/10/25 03:15 MCHC 33.9 g/dL (30-55) 09/10/25 03:15 RDW 13.1 % (12.1-15.1) 09/10/25 03:15 Plt Count 237 10^3/cmm (157-399) 09/10/25 03:15 MPV 9.9 fL (7.4-10.4) 09/10/25 03:15 Neut % (Auto) 68.9 % 09/10/25 03:15 Lymph % (Auto) 21.2 % 09/10/25 03:15 Nelson % (Auto) 6.7 % 09/10/25 03:15 Eos % (Auto) 2.4 % 09/10/25 03:15 Baso % (Auto) 0.5 % 09/10/25 03:15 Neut # (Auto) 5.25 10^3/uL (1.8-7.7) 09/10/25 03:15 Lymph # (Auto) 1.6 10^3/uL (0.8-4.8) 09/10/25 03:15 Nelson # (Auto) 0.5 10^3/uL (0.2-0.9) 09/10/25 03:15 Eos # (Auto) 0.2 10^3/uL (0.0-0.8) 09/10/25 03:15 Baso # (Auto) 0.0 10^3/uL (0.0-0.1) 09/10/25 03:15 Nucleated RBC % (auto) 0 % 09/10/25 03:15 Nucleated RBCs # 0.0 /100WBC 09/10/25 03:15 Sodium 138 mmol/L (136-145) 09/10/25 03:15 Potassium 3.5 mmol/L (3.5-5.1) 09/10/25 03:15 Chloride 104 mmol/L (98-107) 09/10/25 03:15 Carbon Dioxide 24 mmol/L (22-29) 09/10/25 03:15 Anion Gap 13.5 (5-19) 09/10/25 03:15 BUN 9 mg/dL (6-20) 09/10/25 03:15 Creatinine 0.7 mg/dL (0.5-0.9) 09/10/25 03:15 GFR Calculation 90.5 mL/min (90-130) 09/10/25 03:15 Glucose 111 mg/dL (65-115) 09/10/25 03:15 Calculated Osmolality 285 mOsm/kg (285-295) 09/10/25 03:15 Calcium 8.6 mg/dL (8.5-10.5) 09/10/25 03:15 All radiology interpretation(s) finalized by discharge ED provider radiology interpretation(s): CT pelvis showing perianal abscess 2 cm Discharge Plan Discharge Patient Disposition: Home Clinical Impression: Perianal abscess Condition: Stable Prescriptions: New doxycycline monohydrate 100 mg capsule 100 mg PO BID 10 Days Qty: 20 0RF tramadol 25 mg tablet 25 mg PO Q4H PRN (Reason: pain) 3 Days Qty: 14 0RF No Action ibuprofen [Advil] 200 mg tablet 200 mg PO Q6H PRN (Reason: Pain) Discharge Orders: Discharge ED (Routine); Ordered 09/10/25 Ordered By: Nestor Ordaz Referrals: Holger Chiu MD [Physician, General Surgery] - 7-10 days Patient Instructions: Pain Management, Patient Portal & Radha Instructions, Opioid Safety, Anorectal Abscess Print Language: Haitian Coding Level of Care Code ED News Assignment Editor for Chg Damián
[2025-09-10 03:14] VITALS: RESP 16; O2SAT 96
[2025-09-10] MEDS: morphine 4 mg/mL SDV 1 mL IVP (03:14)
[2025-09-10 03:29] LABS: Hematocrit 38.6 % (36-47); Hemoglobin 13.10 g/dL (11.27-16.99); Mean Corpuscular HGB Conc 33.9 g/dL (30-55); Mean Corpuscular Hemoglobin 30.2 pg (27-33); Mean Corpuscular Volume 88.9 fl (85-98); Nucleated Red Blood Cells % 0 %; Platelet Count 237 10^3/cmm (157-399); Red Blood Count 4.34 10^6/uL (3.85-5.65); White Blood Count 7.61 10^3/uL (3.29-11.43)
[2025-09-10 03:46] LABS: Anion Gap 13.5 (5-19); Blood Urea Nitrogen 9 mg/dL (6-20); Calcium 8.6 mg/dL (8.5-10.5); Carbon Dioxide 24 mmol/L (22-29); Chloride 104 mmol/L (98-107); Glucose 111 mg/dL (65-115); Osmolality Calculated 285 mOsm/kg (285-295); Potassium 3.5 mmol/L (3.5-5.1); Sodium 138 mmol/L (136-145)
[2025-09-10] MEDS: iohexol 350 mg/mL 500 mL Btl (per mL) IV (04:03)
[2025-09-10 04:28] VITALS: BP 118/69; PULSE 73; O2SAT 95
[2025-09-10] MEDS: lidocaine-epi 1% 20 mL INJ INJECTION (04:30)
[2025-09-10 05:28] VITALS: BP 136/77; PULSE 73; O2SAT 96
== END 2025-09-10 05:39 | disposition home or self-care (01) ==
PROVIDERS: Emergency Provider Student in an Organized Health Care Education/Training Program
DX: K61.0 Anal abscess (principal)
CPT/HCPCS: 46050; 72193; 80048; 85025; 96374; 99285; J2270; J9999